=== PATIENT | male | born 1975 | race Caucasian/White ===

== ENCOUNTER 2024-04-04 16:34 | Inpatient (IN) | payer SELFPAY ==
[2024-04-04] VITALS (14 sets, daily range): BP systolic 136–226; BP diastolic 84–132; PULSE 95–127; RESP 16–48; TEMP 36.8–37.2; O2SAT 80–100; BMI 22.1
--- NOTE | 2024-04-04 16:51 | DI.RAD.S_ITS ---
PROCEDURE: XR CHEST 1V INDICATIONS: dyspnea TECHNIQUE: One view of the chest was acquired. COMPARISON: None. FINDINGS: Surgical changes and devices: None. Lungs and pleura: Lungs are clear. No pleural effusions or pneumothorax. Mediastinum: Mediastinal contours appear normal. Heart size is normal. Bones and chest wall: No suspicious bony lesions. Multiple old healed right rib fractures. Overlying soft tissues appear unremarkable. IMPRESSION: No acute cardiopulmonary abnormality is seen. Dictated by: Iker Pimentel M.D. on 04/04/2024 at 17:33 Approved by: Iker Pimentel M.D. on 04/04/2024 at 17:34
--- NOTE | 2024-04-04 16:52 | ED.ASTHMA ---
HPI - Asthma <Leopoldo DO Narda - Last Filed: 04/04/24 18:19> General Chief Complaint: Shortness of Breath/Dyspnea Stated Complaint: Asthma, sob Time Seen by Provider: 04/04/24 16:48 History of Present Illness HPI Narrative: Patient is a 49-year-old male with a history of asthma presents to the emergency department for shortness of breath wheezing. States that he started having some shortness of breath wheezing today tried using his nebulizer but did not help therefore came into the ED for further evaluation treatment. Patient was brought in by medics was 80 % on room air, placed on non-rebreather and is now 100%. At time of initial evaluation patient patient with decreased breath sounds bilaterally, tachypneic, however he is protecting his airway. He is speaking in short sentences. He is tolerating his secretions there is no stridor no voice change no trismus. He denies any other symptoms at this time. He states that he has never been intubated for asthma in the past. Related Data Home Medications Medication Instructions Recorded Confirmed Primatene Mist 2 puff inhalation Q4HR PRN Asthma 04/04/24 04/04/24 Allergies Allergy/AdvReac Type Severity Reaction Status Date / Time No Known Drug Allergies Allergy Verified 04/04/24 16:48 Review of Systems <Leopoldo DO Melva Laboy Last Filed: 04/04/24 18:19> Review of Systems Narrative: General: Denies fever, chills, weight loss HEENT: Denies headache, eye drainage, eye irritation, head trauma, sore throat, voice change Cardiovascular: Denies any chest pain, palpitations, shortness of breath, tachycardia Respiratory: Positive for shortness of breath, cough, wheeze GI/: Denies any abdominal pain, nausea, vomiting, diarrhea, bright red blood per rectum, melanotic stools, urinary frequency, urinary retention, dysuria, hematuria MSK: Denies any joint pain, muscle pains, swelling Skin: Denies any rashes, lesions, discoloration Neuro: Denies any headache, lightheadedness, dizziness, fainting, weakness Psych: Denies SI/HI Patient History <DO Melva Hoyos Last Filed: 04/04/24 18:19> Social History household members: family Smoking Status: Current every day smoker alcohol intake: current Exam <DO Melva Hoyos Last Filed: 04/04/24 18:19> Narrative Exam Narrative: General: Cooperative, comfortable, well-developed, not in acute distress HEENT: Normocephalic, atraumatic, PERRLA, normal sclera, eyelids normal, Neck: Active full range of motion, atraumatic Chest: Normal to inspection, negative crepitus, no overlying erythema ecchymosis Respiratory: Patient is speaking in short sentences but protecting airway, no stridor no voice change, no trismus, there is diffuse wheezing bilaterally, as well as diminished breath sounds bilaterally Cardiology: Regular rate rhythm negative gallop, murmur, rubs GI/: Normal to inspection, soft, nonrigid, no tenderness to palpation, exam deferred MSK: Full range of active range of motion of all 4 extremities, atraumatic Skin: No rashes lesions noted Neuro: Alert awake oriented x3, moves all 4 extremities spontaneously, cranial nerves intact, able to answer all questions appropriately follows commands appropriately Psych: Cooperative, negative suicidal or homicidal ideations Initial Vital Signs Initial Vital Signs: Vital Signs Temperature 98.9 F 04/04/24 16:40 Pulse Rate 110 H 04/04/24 16:40 Respiratory Rate 48 H 04/04/24 16:40 Blood Pressure 226/132 H 04/04/24 16:40 Pulse Oximetry 80 L 04/04/24 16:40 Oxygen Delivery Method Room Air 04/04/24 16:40 <Maid Hauser, DO - Last Filed: 04/05/24 00:22> Initial Vital Signs Initial Vital Signs: Vital Signs Temperature 98.9 F 04/04/24 16:40 Pulse Rate 110 H 04/04/24 16:40 Respiratory Rate 48 H 04/04/24 16:40 Blood Pressure 226/132 H 04/04/24 16:40 Pulse Oximetry 80 L 04/04/24 16:40 Oxygen Delivery Method Room Air 04/04/24 16:40 Course <Leopoldo Narda, DO - Last Filed: 04/04/24 18:19> Orders Ordered: ED Orders 04/04/24 16:45 CBC Auto Diff [Complete Blood Count AUTO DIFF] Stat CMP [Comprehensive Metabolic Panel] Stat 04/04/24 16:51 XR chest 1V Stat 04/04/24 17:40 Covid-19 + FLU A/B + RSV - PCR Stat Acetaminophen (Acetaminophen 325 Mg Tablet) 650 mg PO Q6H PRN PRN Reason: Fever/Mild Pain (1-3) Last Admin: 04/04/24 21:56 Dose: 650 mg Documented By: OBI Albuterol (Albuterol 2.5 Mg/3 Ml Neb (Adult)) 2.5 mg INH [id number] PRN PRN Reason: Shortness Of Breath Last Admin: 04/04/24 22:50 Dose: 2.5 mg Documented By: MR Albuterol/Ipratropium (Albuterol/Ipratropium 3 Ml Ampul) 3 ml INH [id number] [facility] Amlodipine Besylate (Amlodipine 5 Mg Tablet) 5 mg PO DAILY [facility] Calcium Carbonate (Calcium Carbonate 500 Mg Tab) 1,000 mg PO Q4HR PRN PRN Reason: Dyspepsia Doxycycline Hyclate (Doxycycline Hyclate 100 Mg Tablet) 100 mg PO BID DAVID Last Admin: 04/04/24 21:57 Dose: 100 mg Documented By: OBI Enoxaparin Sodium (Enoxaparin 40 Mg/0.4 Ml Syringe) 40 mg SUBCUT DAILY [facility] Hydralazine HCl (Hydralazine 20 Mg/Ml Vial) 10 mg IV Q6HR PRN PRN Reason: Hypertension Hydromorphone HCl (Hydromorphone 0.5 Mg Inj) 0.5 mg IV Q2H PRN PRN Reason: Pain, Severe (7-10) Last Admin: 04/04/24 22:55 Dose: 0.5 mg Documented By: VALERIA Ibuprofen (Ibuprofen 600 Mg Tablet) 600 mg PO Q6H PRN PRN Reason: Fever/Mild Pain (1-3) Lorazepam (Lorazepam 0.5 Mg Tablet) 0.5 mg PO Q4HR PRN PRN Reason: Anxiety Last Admin: 04/04/24 22:54 Dose: 0.5 mg Documented By: VALERIA Magnesium Hydroxide (Magnesium Hydroxide 30 Ml Udc) 30 ml PO DAILY PRN PRN Reason: Constipation Methylprednisolone (Methylprednisolone 125 Mg/2 Ml Vial) 80 mg IV Q8H [facility] Montelukast Sodium (Montelukast 10 Mg Tablet) 10 mg PO DAILY [facility] Naloxone HCl (Naloxone 0.4 Mg/Ml Vial) 0.2 mg IV Q2MIN PRN PRN Reason: Opiate Reversal Ondansetron HCl (Ondansetron 4 Mg/2 Ml Inj) 4 mg IV Q8HR PRN PRN Reason: Nausea And Vomiting Pantoprazole Sodium (Pantoprazole Dr 20 Mg Tablet) 20 mg PO 0600 DAVID Sennosides (Sennosides 8.6 Mg Tablet) 17.2 mg PO BEDTIME [facility] Last Admin: 04/04/24 21:57 Dose: Not Given Documented By: OBI Sodium Chloride (Sodium Chloride 0.9% Flush) 10 ml IV PRN PRN PRN Reason: Flush Sodium Chloride (Sodium Chloride 0.9% Flush) 10 ml IV BID DAVID Zolpidem Tartrate (Zolpidem 5 Mg Tablet) 5 mg PO BEDTIME PRN PRN Reason: Sleep Discontinued Medications Albuterol (Albuterol 2.5 Mg/3 Ml Neb (Adult)) 20 mg INH NOW ONE Stop: 04/04/24 16:49 Last Admin: 04/04/24 17:01 Dose: 20 mg Documented By: LUCAS Albuterol/Ipratropium (Albuterol/Ipratropium 3 Ml Ampul) 3 ml INH Q1H PRN PRN Reason: Shortness Of Breath Magnesium Sulfate (Magnesium Sulfate) 2 gm in 50 mls @ 150 mls/hr IV NOW ONE Stop: 04/04/24 17:07 Last Infusion: 04/04/24 17:53 Dose: Infused Documented By: VANESSA Co-signed By: KHOI Admin: 04/04/24 16:53 Dose: 150 mls/hr Documented By: VANESSA Co-signed By: LENA Methylprednisolone (Methylprednisolone 125 Mg/2 Ml Vial) 125 mg IV NOW ONE Stop: 04/04/24 16:49 Last Admin: 04/04/24 16:53 Dose: 125 mg Documented By: VANESSA Methylprednisolone (Methylprednisolone 125 Mg/2 Ml Vial) 80 mg IV Q8H [facility] Last Admin: 04/04/24 20:43 Dose: Not Given Documented By: TALISHA Nicotine (Nicotine 14 Patch) 14 mg TOP NOW ONE Stop: 04/04/24 19:48 Last Admin: 04/04/24 21:40 Dose: 14 mg Documented By: TALISHA Vital Signs Vital signs: Vital Signs - 8 hr 04/04/24 16:40 04/04/24 16:48 04/04/24 17:00 Temperature 98.9 F Pulse Rate 110 H 95 H 103 H Respiratory Rate 48 H Blood Pressure 226/132 H Pulse Oximetry 80 L 100 97 Oxygen Delivery Method Room Air Oxygen Flow Rate 04/04/24 17:01 04/04/24 17:01 04/04/24 17:07 Temperature Pulse Rate 105 H 103 H Respiratory Rate 20 Blood Pressure 179/97 H Pulse Oximetry 96 100 Oxygen Delivery Method Room Air Oxygen Flow Rate 04/04/24 17:30 04/04/24 17:30 04/04/24 18:00 Temperature Pulse Rate 114 H Respiratory Rate Blood Pressure 154/100 H 166/84 H Pulse Oximetry 96 Oxygen Delivery Method Aerosol Mask Oxygen Flow Rate 10 04/04/24 18:00 04/04/24 18:30 04/04/24 18:30 Temperature Pulse Rate 127 H 124 H Respiratory Rate Blood Pressure 136/90 Pulse Oximetry 97 89 L Oxygen Delivery Method Oxygen Flow Rate 04/04/24 19:00 04/04/24 19:00 04/04/24 19:30 Temperature Pulse Rate 118 H 112 H Respiratory Rate Blood Pressure 139/88 Pulse Oximetry 88 L 90 L Oxygen Delivery Method Nasal Cannula Nasal Cannula Oxygen Flow Rate 6 6 04/04/24 19:30 Temperature Pulse Rate Respiratory Rate Blood Pressure 139/88 Pulse Oximetry Oxygen Delivery Method Oxygen Flow Rate <Madi Hauser, DO - Last Filed: 04/05/24 00:22> Orders Ordered: ED Orders 04/04/24 16:45 CBC Auto Diff [Complete Blood Count AUTO DIFF] Stat CMP [Comprehensive Metabolic Panel] Stat 04/04/24 16:51 XR chest 1V Stat 04/04/24 17:40 Covid-19 + FLU A/B + RSV - PCR Stat Acetaminophen (Acetaminophen 325 Mg Tablet) 650 mg PO Q6H PRN PRN Reason: Fever/Mild Pain (1-3) Last Admin: 04/04/24 21:56 Dose: 650 mg Documented By: MP Albuterol (Albuterol 2.5 Mg/3 Ml Neb (Adult)) 2.5 mg INH [id number] PRN PRN Reason: Shortness Of Breath Last Admin: 04/04/24 22:50 Dose: 2.5 mg Documented By: MR Albuterol/Ipratropium (Albuterol/Ipratropium 3 Ml Ampul) 3 ml INH [id number] [facility] Amlodipine Besylate (Amlodipine 5 Mg Tablet) 5 mg PO DAILY [facility] Calcium Carbonate (Calcium Carbonate 500 Mg Tab) 1,000 mg PO Q4HR PRN PRN Reason: Dyspepsia Doxycycline Hyclate (Doxycycline Hyclate 100 Mg Tablet) 100 mg PO BID [facility] Last Admin: 04/04/24 21:57 Dose: 100 mg Documented By: OBI Enoxaparin Sodium (Enoxaparin 40 Mg/0.4 Ml Syringe) 40 mg SUBCUT DAILY [facility] Hydralazine HCl (Hydralazine 20 Mg/Ml Vial) 10 mg IV Q6HR PRN PRN Reason: Hypertension Hydromorphone HCl (Hydromorphone 0.5 Mg Inj) 0.5 mg IV Q2H PRN PRN Reason: Pain, Severe (7-10) Last Admin: 04/04/24 22:55 Dose: 0.5 mg Documented By: VALERIA Ibuprofen (Ibuprofen 600 Mg Tablet) 600 mg PO Q6H PRN PRN Reason: Fever/Mild Pain (1-3) Lorazepam (Lorazepam 0.5 Mg Tablet) 0.5 mg PO Q4HR PRN PRN Reason: Anxiety Last Admin: 04/04/24 22:54 Dose: 0.5 mg Documented By: VALERIA Magnesium Hydroxide (Magnesium Hydroxide 30 Ml Udc) 30 ml PO DAILY PRN PRN Reason: Constipation Methylprednisolone (Methylprednisolone 125 Mg/2 Ml Vial) 80 mg IV Q8H [facility] Montelukast Sodium (Montelukast 10 Mg Tablet) 10 mg PO DAILY [facility] Naloxone HCl (Naloxone 0.4 Mg/Ml Vial) 0.2 mg IV Q2MIN PRN PRN Reason: Opiate Reversal Ondansetron HCl (Ondansetron 4 Mg/2 Ml Inj) 4 mg IV Q8HR PRN PRN Reason: Nausea And Vomiting Pantoprazole Sodium (Pantoprazole Dr 20 Mg Tablet) 20 mg PO 0600 [facility] Sennosides (Sennosides 8.6 Mg Tablet) 17.2 mg PO BEDTIME [facility] Last Admin: 04/04/24 21:57 Dose: Not Given Documented By: OBI Sodium Chloride (Sodium Chloride 0.9% Flush) 10 ml IV PRN PRN PRN Reason: Flush Sodium Chloride (Sodium Chloride 0.9% Flush) 10 ml IV BID [facility] Zolpidem Tartrate (Zolpidem 5 Mg Tablet) 5 mg PO BEDTIME PRN PRN Reason: Sleep Discontinued Medications Albuterol (Albuterol 2.5 Mg/3 Ml Neb (Adult)) 20 mg INH NOW ONE Stop: 04/04/24 16:49 Last Admin: 04/04/24 17:01 Dose: 20 mg Documented By: LUCAS Albuterol/Ipratropium (Albuterol/Ipratropium 3 Ml Ampul) 3 ml INH Q1H PRN PRN Reason: Shortness Of Breath Magnesium Sulfate (Magnesium Sulfate) 2 gm in 50 mls @ 150 mls/hr IV NOW ONE Stop: 04/04/24 17:07 Last Infusion: 04/04/24 17:53 Dose: Infused Documented By: VANESSA Co-signed By: KHOI Admin: 04/04/24 16:53 Dose: 150 mls/hr Documented By: VANESSA Co-signed By: LENA Methylprednisolone (Methylprednisolone 125 Mg/2 Ml Vial) 125 mg IV NOW ONE Stop: 04/04/24 16:49 Last Admin: 04/04/24 16:53 Dose: 125 mg Documented By: VANESSA Methylprednisolone (Methylprednisolone 125 Mg/2 Ml Vial) 80 mg IV Q8H [facility] Last Admin: 04/04/24 20:43 Dose: Not Given Documented By: TALISHA Nicotine (Nicotine 14 Patch) 14 mg TOP NOW ONE Stop: 04/04/24 19:48 Last Admin: 04/04/24 21:40 Dose: 14 mg Documented By: TALISHA Vital Signs Vital signs: Vital Signs - 8 hr 04/04/24 16:40 04/04/24 16:48 04/04/24 17:00 Temperature 98.9 F Pulse Rate 110 H 95 H 103 H Respiratory Rate 48 H Blood Pressure 226/132 H Pulse Oximetry 80 L 100 97 Oxygen Delivery Method Room Air Oxygen Flow Rate 04/04/24 17:01 04/04/24 17:01 04/04/24 17:07 Temperature Pulse Rate 105 H 103 H Respiratory Rate 20 Blood Pressure 179/97 H Pulse Oximetry 96 100 Oxygen Delivery Method Room Air Oxygen Flow Rate 04/04/24 17:30 04/04/24 17:30 04/04/24 18:00 Temperature Pulse Rate 114 H Respiratory Rate Blood Pressure 154/100 H 166/84 H Pulse Oximetry 96 Oxygen Delivery Method Aerosol Mask Oxygen Flow Rate 10 04/04/24 18:00 04/04/24 18:30 04/04/24 18:30 Temperature Pulse Rate 127 H 124 H Respiratory Rate Blood Pressure 136/90 Pulse Oximetry 97 89 L Oxygen Delivery Method Oxygen Flow Rate 04/04/24 19:00 04/04/24 19:00 04/04/24 19:30 Temperature Pulse Rate 118 H 112 H Respiratory Rate Blood Pressure 139/88 Pulse Oximetry 88 L 90 L Oxygen Delivery Method Nasal Cannula Nasal Cannula Oxygen Flow Rate 6 6 04/04/24 19:30 Temperature Pulse Rate Respiratory Rate Blood Pressure 139/88 Pulse Oximetry Oxygen Delivery Method Oxygen Flow Rate MDM - Asthma <Leopoldo Laboy, - Last Filed: 04/04/24 18:19> Differential Diagnosis Differential diagnosis: Likely Acute exacerbation, Pneumonia and other (Electrolyte abnormality, COVID, flu) Lab Data 04/04/24 16:45 04/04/24 16:45 Labs: Lab Results 04/04/24 04/04/24 Range/Units 16:45 17:40 WBC 13.8 H (4.5-11.0) X10^3/uL RBC 5.00 (4.5-5.9) X10^6/uL Hgb 16.7 (13.5-17.5) g/dL Hct 49.3 (41-53) % MCV 98.6 (80-100) fL MCH 33.5 (26-34) PG MCHC 33.9 (30-36) % RDW 12.7 (11.6-14.8) % Plt Count 190 (150-400) X10^3/uL Neut % (Auto) 60.1 (50-75) % Lymph % (Auto) 26.3 (25-40) % Meigs % (Auto) 9.4 (3-14) % Eos % (Auto) 3.5 (2-4) % Baso % (Auto) 0.7 (0-2) % Neut # (Auto) 8300 H (8440-6610) /uL Lymph # (Auto) 3600 (1029-8532) /uL Meigs # (Auto) 1300 H (0-900) /uL Eos # (Auto) 500 H (0-450) /uL Baso # (Auto) 100 (0-100) /uL Sodium 136 L (137-145) mmol/L Potassium 4.1 (3.4-5.1) mmol/L Chloride 102 (98-107) mmol/L Carbon Dioxide 25 (22-32) mmol/L BUN 8 L (9-20) mg/dL Creatinine 0.92 (0.66-1.25) mg/dL Estimated GFR > 60 (>60) mL/min BUN/Creatinine Ratio 8.7 (6-22) Glucose 118 H (70-100) mg/dL Calcium 9.3 (8.4-10.2) mg/dL Total Bilirubin 0.6 (0.2-1.3) mg/dL AST 23 (17-59) IU/L ALT 19 (<50) IU/L Alkaline Phosphatase 103 (38-126) U/L Total Protein 7.6 (6.3-8.2) g/dL Albumin 4.8 (3.5-5.0) g/dL Globulin 2.8 (1.7-4.1) g/dL Albumin/Globulin Ratio 1.7 (1.0-2.8) SARS-CoV-2 (PCR) Negative (Negative) Influenza A (RT-PCR) Flu a negative (NEGATIVE) Influenza B (RT-PCR) Flu b negative (NEGATIVE) RSV (PCR) Negative (Negative) Imaging Data Chest x-ray: Radiologist's Impression: [address] [address] XRay Report Signed Patient: Willy Rodriguez MR#: [id number] : 1975 Acct:[id number] Age/Sex: 49 / M Date of Service: 04/04/24 Loc: ED Accession Number: [id number] Procedure: XR chest 1V Ordering Provider: Leopoldo Laboy D.O. PROCEDURE: XR CHEST 1V INDICATIONS: dyspnea TECHNIQUE: One view of the chest was acquired. COMPARISON: None. FINDINGS: Surgical changes and devices: None. Lungs and pleura: Lungs are clear. No pleural effusions or pneumothorax. Mediastinum: Mediastinal contours appear normal. Heart size is normal. Bones and chest wall: No suspicious bony lesions. Multiple old healed right rib fractures. Overlying soft tissues appear unremarkable. IMPRESSION: No acute cardiopulmonary abnormality is seen. MDM Narrative Medical decision making narrative: Patient is a 49-year-old male with a history of asthma, brought in by medics for shortness of breath, patient was hypoxic on room air in the 80s. Placed on a non-rebreather now 100%. At initial evaluation patient with diminished breath sounds bilaterally with expiratory wheezes bilaterally, he is tachypneic but is protecting his airway. Speaking in short sentences. He was not with any voice change no stridor no trismus. He has never been intubated for this in the past. States that he was trying to use his nebulizers at home with very little relief. 1801: Patient was re-evaluated, he is now speaking in full sentences he has trace to no expiratory wheezes on repeat auscultation of bilateral lungs, will monitor him off oxygen, if patient still not requiring any supplemental oxygen will be safe for discharge home with steroids, rescue inhaler and nebulizer solution prescription. <Madi Hauser, DO - Last Filed: 04/05/24 00:22> Lab Data Labs: Lab Results 04/04/24 04/04/24 Range/Units 16:45 17:40 WBC 13.8 H (4.5-11.0) X10^3/uL RBC 5.00 (4.5-5.9) X10^6/uL Hgb 16.7 (13.5-17.5) g/dL Hct 49.3 (41-53) % MCV 98.6 (80-100) fL MCH 33.5 (26-34) PG MCHC 33.9 (30-36) % RDW 12.7 (11.6-14.8) % Plt Count 190 (150-400) X10^3/uL Neut % (Auto) 60.1 (50-75) % Lymph % (Auto) 26.3 (25-40) % Meigs % (Auto) 9.4 (3-14) % Eos % (Auto) 3.5 (2-4) % Baso % (Auto) 0.7 (0-2) % Neut # (Auto) 8300 H (9169-1226) /uL Lymph # (Auto) 3600 (6816-3535) /uL Meigs # (Auto) 1300 H (0-900) /uL Eos # (Auto) 500 H (0-450) /uL Baso # (Auto) 100 (0-100) /uL Sodium 136 L (137-145) mmol/L Potassium 4.1 (3.4-5.1) mmol/L Chloride 102 (98-107) mmol/L Carbon Dioxide 25 (22-32) mmol/L BUN 8 L (9-20) mg/dL Creatinine 0.92 (0.66-1.25) mg/dL Estimated GFR > 60 (>60) mL/min BUN/Creatinine Ratio 8.7 (6-22) Glucose 118 H (70-100) mg/dL Calcium 9.3 (8.4-10.2) mg/dL Total Bilirubin 0.6 (0.2-1.3) mg/dL AST 23 (17-59) IU/L ALT 19 (<50) IU/L Alkaline Phosphatase 103 (38-126) U/L Total Protein 7.6 (6.3-8.2) g/dL Albumin 4.8 (3.5-5.0) g/dL Globulin 2.8 (1.7-4.1) g/dL Albumin/Globulin Ratio 1.7 (1.0-2.8) SARS-CoV-2 (PCR) Negative (Negative) Influenza A (RT-PCR) Flu a negative (NEGATIVE) Influenza B (RT-PCR) Flu b negative (NEGATIVE) RSV (PCR) Negative (Negative) MDM Narrative Medical decision making narrative: Patient is a 49-year-old male with a history of asthma, brought in by medics for shortness of breath, patient was hypoxic on room air in the 80s. Placed on a non-rebreather now 100%. At initial evaluation patient with diminished breath sounds bilaterally with expiratory wheezes bilaterally, he is tachypneic but is protecting his airway. Speaking in short sentences. He was not with any voice change no stridor no trismus. He has never been intubated for this in the past. States that he was trying to use his nebulizers at home with very little relief. 1801: Patient was re-evaluated, he is now speaking in full sentences he has trace to no expiratory wheezes on repeat auscultation of bilateral lungs, will monitor him off oxygen, if patient still not requiring any supplemental oxygen will be safe for discharge home with steroids, rescue inhaler and nebulizer solution prescription. Dr hauser: Received turned over. Review patient's history and physical. Patient states he was feeling much better in his lung sounds are clear however he continues to be hypoxic. Is requiring 6 L of oxygen by nasal cannula in order to maintain saturations greater than 90%. He was no chest pain. I have low suspicion for pulmonary embolism just given his presentation today. No signs of pneumonia on his chest x-ray. Given the fact that he is requiring oxygen he does require admission to the hospital. Discussed the case with Dr. renee hospitalist on-call who will admit. Discussed the need for admission with the patient who expressed understanding and agreement as well. Discharge Plan Departure Patient Disposition: Admitted as Observation Clinical Impression: Asthma with exacerbation, Hypoxia Admit Date/Time: 04/04/24 19:54 Admit Provider: Madi Renee
[2024-04-04] MEDS: MAGNESIUM SULFATE 2 GM/50 ML PIGGYBACK IV (16:53)
[2024-04-04] MEDS: methylPREDNISolone 125 MG/2 ML VIAL IV (16:53)
[2024-04-04 16:58] LABS: Add Manual Diff / Slide Review NO; Basophils Absolute Auto 100 /uL (0-100); Basophils Percent Auto 0.7 % (0-2); Eosinophils Absolute Auto 500 /uL (0-450); Eosinophils Percent Auto 3.5 % (2-4); Hematocrit 49.3 % (41-53); Hemoglobin 16.7 g/dL (13.5-17.5); Lymphocytes Absolute Auto 3600 /uL (1100-4500); Lymphocytes Percent Auto 26.3 % (25-40); Mean Corpuscular HGB Conc 33.9 % (30-36); Mean Corpuscular Hemoglobin 33.5 PG (26-34); Mean Corpuscular Volume 98.6 fL (80-100); Monocytes Absolute Auto 1300 /uL (0-900); Monocytes Percent Auto 9.4 % (3-14); Neutrophils Absolute Auto 8300 /uL (1500-7000); Neutrophils Percent Auto 60.1 % (50-75); Platelet Count 190 X10^3/uL (150-400); Red Cell Distribution Width 12.7 % (11.6-14.8); White Blood Cell Count 13.8 X10^3/uL (4.5-11.0)
[2024-04-04] MEDS: ALBUTEROL 2.5 MG/3 ML NEB (ADULT) 20 MG INH (17:01)
[2024-04-04 17:08] LABS: Alanine Aminotransferase 19 IU/L (<50); Albumin 4.8 g/dL (3.5-5.0); Albumin Globulin Ratio 1.7 (1.0-2.8); Alkaline Phosphatase 103 U/L (38-126); Aspartate Aminotransferase 23 IU/L (17-59); BUN Creatinine Ratio 8.7 (6-22); Bilirubin Total 0.6 mg/dL (0.2-1.3); Blood Urea Nitrogen 8 mg/dL (9-20); Calcium 9.3 mg/dL (8.4-10.2); Carbon Dioxide 25 mmol/L (22-32); Chloride 102 mmol/L (98-107); Estimated Glomerular Filt Rate > 60 mL/min (>60); Globulin 2.8 g/dL (1.7-4.1); Glucose 118 mg/dL (70-100); HEMOLYSIS < 15 (0-50); Potassium 4.1 mmol/L (3.4-5.1); Sodium 136 mmol/L (137-145); Total Protein 7.6 g/dL (6.3-8.2)
--- NOTE | 2024-04-04 17:11 | RT ---
Patient given Albuterol 20mg continuous Neb for Asthma exacerbation. Patient states he ran out of home med (primatine mist mdi). Immediate improvement noted with tx. BS pre tx diminished anterior, with I/E Wheezes throughout posterior lung torres.
--- NOTE | 2024-04-04 17:30 | RT ---
RT called to bedside. Patient with RA sats of 88%. Tx switched from 10L air source to 10L oxygen. Current sat 97%
--- NOTE | 2024-04-04 18:03 | PC.NURSE ---
Continuous neb finished, wheezes no longer auscultated. After continuous neb, pt 88% on RA, now requiring 2L NC
--- NOTE | 2024-04-04 18:23 | PC.NURSE ---
Oxygen demands increasing. RT called to bedside pt 88% on 6L NC. Dr. Laboy aware and okaying O2 sat >88%. Pt appears well and free of respiratory distress.
[2024-04-04 18:29] LABS: Influenza A - CEPHEID Flu A NEGATIVE (NEGATIVE); Influenza B - CEPHEID Flu B NEGATIVE (NEGATIVE); Respiratory Syncytial Virus Negative (Negative)
[2024-04-04 18:31] LABS: COVID-19 CEPHEID 4-PLEX PCR Negative (Negative)
--- NOTE | 2024-04-04 20:00 | PC.NURSE ---
Patient oxygen saturation fluctuating between 89-90% on 6L oxygen nasal cannula. Patient states he does not have SOB and denies other symptoms at this time. Dr. Hauser is aware as well as RT Vela. No new orders. Patient has call light in reach and is AAOx4 will call if any changes.
[2024-04-04] MEDS: NICOTINE 14 PATCH 14 MG TOP (21:40)
[2024-04-04] MEDS: ACETAMINOPHEN 325 MG TABLET 650 MG PO (21:56)
[2024-04-04] MEDS: DOXYCYCLINE HYCLATE 100 MG TABLET PO (21:57)
[2024-04-04] MEDS: ALBUTEROL 2.5 MG/3 ML NEB (ADULT) INH (22:50)
[2024-04-04] MEDS: LORazepam 0.5 MG TABLET PO (22:54)
[2024-04-04] MEDS: HYDROMORPHONE 0.5 MG INJ IV (22:55)
--- NOTE | 2024-04-04 23:25 | P.HP_ITS ---
History of Present Illness History of Present Illness Date Patient Seen: 04/05/24 Time Patient Seen: 23:25 Chief complaint: Asthma, sob Narrative: The pt started having SOB and chest tightness over the past 4-5 days. He states that he ran out of his albuterol and Spiriva inhaler about 2 weeks ago. The last time he was in the hospital was for his asthma about 2 years ago. He continues to smoke cigarettes a pack daily, no marijuana use, no alcohol use, he works in a [employer] making [employer] and believes there are irritants to his breathing there. He has not been exposed to known illness, no recent immunizations, no fevers, chills, or productive sputum. FOR[facility]LY [facility] Social History household members: family Smoking Status: Current every day smoker alcohol intake: current Meds Home Medications and Allergies Home Medications Medication Instructions Recorded Confirmed Type Primatene Mist 2 puff inhalation Q4HR PRN Asthma 04/04/24 04/04/24 History Allergies Allergy/AdvReac Type Severity Reaction Status Date / Time No Known Drug Allergies Allergy Verified 04/04/24 16:48 Exam Vital Signs (past 8 hours): - 04/04/24 16:40 04/04/24 16:48 04/04/24 17:00 Temperature 98.9 F Pulse Rate 110 H 95 H 103 H Respiratory Rate 48 H Blood Pressure 226/132 H Pulse Oximetry 80 L 100 97 Oxygen Delivery Method Room Air Oxygen Flow Rate 04/04/24 17:01 04/04/24 17:01 04/04/24 17:07 Temperature Pulse Rate 105 H 103 H Respiratory Rate 20 Blood Pressure 179/97 H Pulse Oximetry 96 100 Oxygen Delivery Method Room Air Oxygen Flow Rate 04/04/24 17:30 04/04/24 17:30 04/04/24 18:00 Temperature Pulse Rate 114 H Respiratory Rate Blood Pressure 154/100 H 166/84 H Pulse Oximetry 96 Oxygen Delivery Method Aerosol Mask Oxygen Flow Rate 10 04/04/24 18:00 04/04/24 18:30 04/04/24 18:30 Temperature Pulse Rate 127 H 124 H Respiratory Rate Blood Pressure 136/90 Pulse Oximetry 97 89 L Oxygen Delivery Method Oxygen Flow Rate 04/04/24 19:00 04/04/24 19:00 04/04/24 19:30 Temperature Pulse Rate 118 H 112 H Respiratory Rate Blood Pressure 139/88 Pulse Oximetry 88 L 90 L Oxygen Delivery Method Nasal Cannula Nasal Cannula Oxygen Flow Rate 6 6 04/04/24 19:30 04/04/24 20:00 04/04/24 20:00 Temperature Pulse Rate 111 H Respiratory Rate Blood Pressure 139/88 145/93 H Pulse Oximetry 90 L Oxygen Delivery Method Nasal Cannula Oxygen Flow Rate 6 04/04/24 20:30 04/04/24 20:30 04/04/24 21:00 Temperature Pulse Rate 106 H Respiratory Rate 20 Blood Pressure 147/86 H 147/86 H Pulse Oximetry 89 L Oxygen Delivery Method Nasal Cannula Oxygen Flow Rate 6 04/04/24 21:00 04/04/24 21:50 Temperature 98.3 F Pulse Rate 106 H 106 H Respiratory Rate 19 16 Blood Pressure 140/92 H Pulse Oximetry 90 L 91 Oxygen Delivery Method Nasal Cannula Oxygen Flow Rate 6 6 Oxygen Delivery Method Nasal Cannula Oxygen Flow Rate 6 Const General: cooperative, healthy appearing and comfortable Resp Auscultation: diminished lung sounds and wheezes Cardio Rate: regular rate Rhythm: regular rhythm GI Auscultation: normal bowel sounds Extrem General: normal to inspection Objective Labs 04/04/24 16:45 04/04/24 16:45 Labs: Laboratory Results - last 24 hr 04/04/24 04/04/24 16:45 17:40 WBC 13.8 H RBC 5.00 Hgb 16.7 Hct 49.3 MCV 98.6 MCH 33.5 MCHC 33.9 RDW 12.7 Plt Count 190 Neut % (Auto) 60.1 Lymph % (Auto) 26.3 [place] % (Auto) 9.4 Eos % (Auto) 3.5 Baso % (Auto) 0.7 Neut # (Auto) 8300 H Lymph # (Auto) 3600 [place] # (Auto) 1300 H Eos # (Auto) 500 H Baso # (Auto) 100 Sodium 136 L Potassium 4.1 Chloride 102 Carbon Dioxide 25 BUN 8 L Creatinine 0.92 Estimated GFR > 60 BUN/Creatinine Ratio 8.7 Glucose 118 H Calcium 9.3 Total Bilirubin 0.6 AST 23 ALT 19 Alkaline Phosphatase 103 Total Protein 7.6 Albumin 4.8 Globulin 2.8 Albumin/Globulin Ratio 1.7 SARS-CoV-2 (PCR) Negative Influenza A (RT-PCR) Flu a negative Influenza B (RT-PCR) Flu b negative RSV (PCR) Negative Assessment & Plan Assessment & Plan narrative: I have discussed the pt's symptoms, labs and imaging with the ER provider and agree with the decision for admission, shared decision making was had with the pt, ER provider and myself. I have personally reviewed the labs showing the WBC of 13 and electrolytes being normal. 1. asthma exacerbation on intermittent chronic asthma- will start the pt on Solumedrol 80mg Q8, Duonebs QID, albuterol prn, closely monitor, CXR reviewed without acute infiltrates. 2. Acute respiratory failure with hypoxia- currently on 5 lpm NC with SaO2 96% , he is not normally on oxygen, check d-dimer, although clinically there is a low suspecion for PE, 3. HTN- the pt states that he ran out of all of his medications weeks ago and does not know what BP meds he is on at home, will start on Norvasc. Time-Based Coding :: [TOTAL MINUTES] spent with patient and on the chart (including review of chart, obtaining history, exam, reviewing outside data, placing orders, documenting exam and treatment plan, and counseling patient) on [DATE]. Quality VTE Deep Vein Thrombosis/Pulmonary Embolism Present on Admission: No
[2024-04-05] VITALS (8 sets, daily range): BP systolic 136–148; BP diastolic 58–98; PULSE 98–105; RESP 17–20; TEMP 36.1–36.4; O2SAT 91–94
--- NOTE | 2024-04-05 00:10 | PC.NURSE ---
2150 Pt. admitted to room 223 from ER,. Diagnosed with Asthma exacerbation,reported breathing a lot better after receiving some RT treatment in ER. Oriented to his room & denies any fall recently. Will continue plan of care & monitor.
[2024-04-05] MEDS: methylPREDNISolone 125 MG/2 ML VIAL 80 MG IV ×3 (01:02→16:58)
[2024-04-05] MEDS: SODIUM CHLORIDE 0.9% FLUSH 10 ML IV ×4 (01:03→21:17)
[2024-04-05] MEDS: ALBUTEROL 2.5 MG/3 ML NEB (ADULT) INH (03:37)
[2024-04-05] MEDS: HYDROMORPHONE 0.5 MG INJ IV ×3 (03:55→14:31)
[2024-04-05] MEDS: LORazepam 0.5 MG TABLET PO ×4 (04:01→21:16)
[2024-04-05 04:48] LABS: UR Morphine/Opiate cutoff 300 Negative (Negative); Ur Creatinine Normal (Normal); Ur Specific Gravity Normal (Normal); Urine Amphetamines Negative (Negative); Urine Barbiturates Negative (Negative); Urine Benzodiazepines Positive (Negative); Urine Cocaine Negative (Negative); Urine MDMA Negative (Negative); Urine Methadone Negative (Negative); Urine Methamphetamines Negative (Negative); Urine Oxycodone Negative (Negative); Urine Phencyclidine Negative (Negative); Urine Tetrahydrocannabinol Negative (Negative); Urine Tricyclic Antidepressant Negative (Negative); Urine pH Normal (Normal)
[2024-04-05] MEDS: PANTOPRAZOLE DR 20 MG TABLET PO (05:32)
[2024-04-05 05:38] LABS: Add Manual Diff / Slide Review NO; Basophils Absolute Auto 0 /uL (0-100); Basophils Percent Auto 0.2 % (0-2); Eosinophils Absolute Auto 0 /uL (0-450); Eosinophils Percent Auto 0.1 % (2-4); Hematocrit 44.9 % (41-53); Hemoglobin 15.5 g/dL (13.5-17.5); Lymphocytes Absolute Auto 800 /uL (1100-4500); Lymphocytes Percent Auto 6.6 % (25-40); Mean Corpuscular HGB Conc 34.5 % (30-36); Mean Corpuscular Hemoglobin 33.5 PG (26-34); Monocytes Absolute Auto 100 /uL (0-900); Monocytes Percent Auto 0.9 % (3-14); Neutrophils Absolute Auto 10800 /uL (1500-7000); Neutrophils Percent Auto 92.2 % (50-75); Platelet Count 178 X10^3/uL (150-400); Red Blood Cell Count 4.63 X10^6/uL (4.5-5.9); Red Cell Distribution Width 12.8 % (11.6-14.8); White Blood Cell Count 11.7 X10^3/uL (4.5-11.0)
[2024-04-05 05:54] LABS: D Dimer < 215 ng/ml (<500)
[2024-04-05 05:58] LABS: BUN Creatinine Ratio 15.4 (6-22); Blood Urea Nitrogen 12 mg/dL (9-20); Calcium 9.5 mg/dL (8.4-10.2); Carbon Dioxide 21 mmol/L (22-32); Chloride 101 mmol/L (98-107); Estimated Glomerular Filt Rate > 60 mL/min (>60); Glucose 176 mg/dL (70-100); HEMOLYSIS < 15 (0-50); Potassium 4.2 mmol/L (3.4-5.1); Sodium 132 mmol/L (137-145)
--- NOTE | 2024-04-05 06:33 | PC.NURSE ---
Dr. Renee notified x2 via messaging to order a parameter for high blood pressure to administer Hydralazine 10 mg. PRN. Awaiting order, will monitor & report to day RN.
[2024-04-05] MEDS: ALBUTEROL/IPRATROPIUM 3 ML AMPUL INH ×3 (08:02→19:49)
[2024-04-05] MEDS: DOXYCYCLINE HYCLATE 100 MG TABLET PO ×2 (09:01→21:17)
[2024-04-05] MEDS: AMLODIPINE 5 MG TABLET PO (09:02)
[2024-04-05] MEDS: ENOXAPARIN 40 MG/0.4 ML SYRINGE SUBCUT (09:02)
[2024-04-05] MEDS: MONTELUKAST 10 MG TABLET PO (09:02)
--- NOTE | 2024-04-05 09:34 | CM.DANOTE ---
Initial DCP Assessment Note Pt is a 49 yo male, resident of [place], arrives after running out of his asthma medications with SOB, asthma exacerbation. PCP: None Payer: Self Pay Reviewed chart, met w/patient to introduce self and role. 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 Patient states his insurance coverage should be active now that he started his job, although he does not have his insurance card or new policy number. Strongly encouraged patient to discuss this with his HR dept at [employer]. Discussed medications. Patient reports he ran out of his albuterol. Patient may benefit from a [employer] coupon for albuterol and any other new med needed as he will likely be paying privately; unless he obtains his new insurance policy number/INS card. Patient thinks it is [facility]. Plan: Discharge home w/family, patient eager to discharge today. CM team will plan to follow clinical course closely. NILESH Perez Discharge Planning/Care Management CM Discharge Assessment Start: 04/05/24 09:32 Freq: Status: Active Protocol: Document 04/05/24 09:32 MAURILIO (Rec: 04/05/24 09:34 [id number]) Discharge Planning Assessment Assigned Manufacturing Area Manager NILESH Trinidad DPOA/Assigned Designee Name Nahid Lynch, brother, DENITA Contact Information [phone] or [phone] Advance Directives? No History Provided By Patient,Medical Record Prior Living Arrangements House Household Members family Type of transporation used prior to Drives own vehicle admit Independent with ADL's Yes Is patient alert and oriented? Yes Barriers to Discharge No Comment Patient does not have an insurance card or policy number. Discharge Plan Home Transportation Arrangement Family Referrals Initiated None needed
[2024-04-05] MEDS: NICOTINE 21 MG PATCH TOP (11:20)
--- NOTE | 2024-04-05 14:28 | P.PN_ITS ---
Subjective Subjective Interval history: 49 M smoker, asthma admitted with asthma exacerbation. He had run out of symbicort and albuterol. Remains on supplemental oxygen this afternoon but feeling improved overall. Exam Vital Signs (past 8 hours): - 04/05/24 08:00 04/05/24 08:00 04/05/24 08:03 Temperature 97 F L Pulse Rate 98 H 102 H Respiratory Rate 17 20 Blood Pressure 137/58 L Pulse Oximetry 91 91 Oxygen Delivery Method Nasal Cannula Nasal Cannula Humidification Oxygen Flow Rate 6 04/05/24 12:00 04/05/24 13:12 Temperature 97.4 F L Pulse Rate 105 H Respiratory Rate 17 Blood Pressure 139/81 Pulse Oximetry 91 94 Oxygen Delivery Method Nasal Cannula Oxygen Flow Rate 4 5 Oxygen Delivery Method Nasal Cannula Oxygen Flow Rate 5 Narrative Exam Narrative: Gen: WDWN no acute distress CV: RRR no m/r/g pulm: CTA b/l no wheezing rhonchi rales today Abd: S NT ND Ext: no edema Objective Labs 04/05/24 05:00 04/05/24 05:00 Labs: Laboratory Results - last 24 hr 04/04/24 04/04/24 04/05/24 16:45 17:40 04:05 WBC 13.8 H RBC 5.00 Hgb 16.7 Hct 49.3 MCV 98.6 MCH 33.5 MCHC 33.9 RDW 12.7 Plt Count 190 Neut % (Auto) 60.1 Lymph % (Auto) 26.3 [place] % (Auto) 9.4 Eos % (Auto) 3.5 Baso % (Auto) 0.7 Neut # (Auto) 8300 H Lymph # (Auto) 3600 [place] # (Auto) 1300 H Eos # (Auto) 500 H Baso # (Auto) 100 D-Dimer Sodium 136 L Potassium 4.1 Chloride 102 Carbon Dioxide 25 BUN 8 L Creatinine 0.92 Estimated GFR > 60 BUN/Creatinine Ratio 8.7 Glucose 118 H Calcium 9.3 Total Bilirubin 0.6 AST 23 ALT 19 Alkaline Phosphatase 103 Total Protein 7.6 Albumin 4.8 Globulin 2.8 Albumin/Globulin Ratio 1.7 U Opiates 300ng/mL cut Negative Ur Oxycodone Screen Negative Urine Methadone Screen Negative Ur Barbiturates Screen Negative U Tricyclic Antidepress Negative Ur Phencyclidine Scrn Negative Ur Amphetamines Screen Negative U Methamphetamines Scrn Negative Ur MDMA Scrn (Ecstasy) Negative U Benzodiazepines Scrn Positive H Urine Cocaine Screen Negative U Marijuana (THC) Screen Negative Urine pH Normal Urine Specific [place] Normal Ur Creatinine Normal SARS-CoV-2 (PCR) Negative Influenza A (RT-PCR) Flu a negative Influenza B (RT-PCR) Flu b negative RSV (PCR) Negative 04/05/24 05:00 WBC 11.7 H RBC 4.63 Hgb 15.5 Hct 44.9 MCV 97.0 MCH 33.5 MCHC 34.5 RDW 12.8 Plt Count 178 Neut % (Auto) 92.2 H D Lymph % (Auto) 6.6 L [place] % (Auto) 0.9 L Eos % (Auto) 0.1 L Baso % (Auto) 0.2 Neut # (Auto) 13429 H Lymph # (Auto) 800 L [place] # (Auto) 100 Eos # (Auto) 0 Baso # (Auto) 0 D-Dimer < 215 Sodium 132 L Potassium 4.2 Chloride 101 Carbon Dioxide 21 L BUN 12 Creatinine 0.78 Estimated GFR > 60 BUN/Creatinine Ratio 15.4 Glucose 176 H Calcium 9.5 Total Bilirubin AST ALT Alkaline Phosphatase Total Protein Albumin Globulin Albumin/Globulin Ratio U Opiates 300ng/mL cut Ur Oxycodone Screen Urine Methadone Screen Ur Barbiturates Screen U Tricyclic Antidepress Ur Phencyclidine Scrn Ur Amphetamines Screen U Methamphetamines Scrn Ur MDMA Scrn (Ecstasy) U Benzodiazepines Scrn Urine Cocaine Screen U Marijuana (THC) Screen Urine pH Urine Specific [place] Ur Creatinine SARS-CoV-2 (PCR) Influenza A (RT-PCR) Influenza B (RT-PCR) RSV (PCR) PFSH Social History household members: family Smoking Status: Current every day smoker alcohol intake: current Assessment & Plan Assessment & Plan narrative: 1. asthma exacerbation with moderate persistent asthma with acute respiratory failure with hypoxia- - continue solumedrol q8 today, transition to oral prednisone starting tomorrow AM. Doxycycline also added, will continue. - restart symbicort on discharge - Goal O2 90-96% on supplemental therapy, wean as tolerated. - RT evaluation and treatment, nebulizer therapies ordered. albuterol prn. - Flu/COVID/RSV negative 2. HTN- the pt states that he ran out of all of his medications weeks ago and does not know what BP meds he is on at home, will start on Norvasc. BP improved today. Code: Full, surrogate is patient's brother DVT: Lovenox daily I have utilized all available immediate resources to obtain, update, or review the patient's current medications. Dispo: patient admitted under inpatient status. Plan for discharge home once off supplemental oxygen, likely 1-2 more days. Additional history obtained via discussions with the overnight hospitalist and admitting provider. These discussions contributed to the creation of the above assessment and plan. I have reviewed patient's presenting documentation, labs, and imaging personally. Time-Based Coding :: [TOTAL MINUTES] spent with patient and on the chart (including review of chart, obtaining history, exam, reviewing outside data, placing orders, documenting exam and treatment plan, and counseling patient) on [DATE]. Quality VTE Deep Vein Thrombosis/Pulmonary Embolism Present on Admission: No
--- NOTE | 2024-04-05 14:46 | CM.DPNOTE ---
DCP Cont Patient reports Symbicort has been the most effective asthma medication for him (also the most expensive). Provided patient with GoodRx coupons for Albuterol, Spuriva and Symbicort. Also found a coupon on Symbocort's manufacturers website that patient may be able to use. Patient appreciative. MAURILIO
[2024-04-05] MEDS: OXYCODONE IR 5 MG TABLET PO ×2 (16:57→21:16)
[2024-04-05] MEDS: SENNOSIDES 8.6 MG TABLET 17.2 MG PO (21:17)
[2024-04-06] MEDS: PANTOPRAZOLE DR 20 MG TABLET PO (06:11)
[2024-04-06] MEDS: OXYCODONE IR 5 MG TABLET PO ×4 (06:13→20:12)
[2024-04-06] MEDS: ALBUTEROL 2.5 MG/3 ML NEB (ADULT) INH (06:26)
[2024-04-06 08:00] VITALS: BP 124/79; PULSE 92; RESP 19; TEMP 36.3; O2SAT 95
[2024-04-06] MEDS: HYDROMORPHONE 0.5 MG INJ IV ×2 (08:28→22:39)
[2024-04-06] MEDS: ENOXAPARIN 40 MG/0.4 ML SYRINGE SUBCUT (09:13)
[2024-04-06] MEDS: NICOTINE 21 MG PATCH TOP (09:13)
[2024-04-06] MEDS: DOXYCYCLINE HYCLATE 100 MG TABLET PO ×2 (09:14→20:11)
[2024-04-06] MEDS: AMLODIPINE 5 MG TABLET PO (09:14)
[2024-04-06] MEDS: predniSONE 20 MG TABLET 40 MG PO (09:14)
[2024-04-06] MEDS: MONTELUKAST 10 MG TABLET PO (09:14)
[2024-04-06] MEDS: LORazepam 0.5 MG TABLET PO (09:15)
[2024-04-06] MEDS: SODIUM CHLORIDE 0.9% FLUSH 10 ML IV ×2 (09:15→20:13)
[2024-04-06 09:18] VITALS: O2SAT 92
--- NOTE | 2024-04-06 12:47 | CM.DPNOTE ---
Addendum entered by NILESH Groves 04/06/24 16:48: per TCM team, new pt appt SOC scheduled with Dr. Nava at 3pm on 04/13/24. updated pt, in agreement. CM will include f/u appt in work excuse letter so he can leave work early for appt. pt appreciative. SL Original Note: DCP Note MICROSOFT SYSTEMS ENGINEER reviewed EMR. Per hospitalist in morning rounds, pt can dc once off oxygen. as of 917 per chart, pt remains on 3.5ltrs. MICROSOFT SYSTEMS ENGINEER met with pt in room. Was not able to contact work about ins card. MICROSOFT SYSTEMS ENGINEER gave pt the phone number for [employer] to get policy number. MICROSOFT SYSTEMS ENGINEER gave pt information on scheduling SOC with new PCP in [place]. Pt appreciative of updates. Asked for a work excuse letter, this MICROSOFT SYSTEMS ENGINEER will complete when dc date is known. MICROSOFT SYSTEMS ENGINEER messaged TCM team with heads up that pt is looking to schedule SOC with new provider here. Plan: Discharge home w/family and close OP f/u. Work excuse letter needed. CM team will plan to follow clinical course closely. NILESH Groves
[2024-04-06 13:09] VITALS: PULSE 94; RESP 24; O2SAT 92
[2024-04-06] MEDS: ALBUTEROL/IPRATROPIUM 3 ML AMPUL INH ×2 (13:09→19:50)
[2024-04-06 15:28] VITALS: BP 161/86; PULSE 92; RESP 18; O2SAT 90
--- NOTE | 2024-04-06 16:02 | PM.PN.1 ---
Subjective Subjective Date Patient Seen: 04/06/24 Time Patient Seen: 08:45 Interval history: 49 M smoker, asthma admitted with asthma exacerbation. He had run out of symbicort and albuterol. Remains on supplemental oxygen this afternoon but feeling improved overall. Interval history: He reports to be feeling better but is still requiring 2-3 L of oxygen to maintain oxygen saturations over 92%. Exam Vital Signs (past 8 hours): - 04/06/24 08:18 04/06/24 09:18 04/06/24 13:09 Pulse Rate 94 H Respiratory Rate 24 Blood Pressure Pulse Oximetry 92 92 Oxygen Delivery Method Nasal Cannula Nasal Cannula Nasal Cannula Oxygen Flow Rate 3.5 3.5 04/06/24 15:28 Pulse Rate 92 H Respiratory Rate 18 Blood Pressure 161/86 H Pulse Oximetry 90 L Oxygen Delivery Method Oxygen Flow Rate 1 Oxygen Delivery Method Nasal Cannula Oxygen Flow Rate 1 Narrative Exam Narrative: Gen: WDWN no acute distress CV: RRR no m/r/g pulm: CTA b/l no wheezing rhonchi rales today Abd: S NT ND Ext: no edema Objective Labs 04/05/24 05:00 04/05/24 05:00 [facility] Social History household members: family Smoking Status: Current every day smoker alcohol intake: current Assessment & Plan Assessment & Plan narrative: 1. asthma exacerbation with moderate persistent asthma with acute respiratory failure with hypoxia- - continue solumedrol q8 today, transition to oral prednisone starting 04/06/2024. - continue doxycycline - restart symbicort on discharge - Goal O2 90-96% on supplemental therapy, wean as tolerated. - RT evaluation and treatment, nebulizer therapies ordered. albuterol prn. - Flu/COVID/RSV negative with low D-dimer 2. HTN- the pt states that he ran out of all of his medications weeks ago and does not know what BP meds he is on at home, will start on amlodipine 5 mg daily. BP improved today. 3. Chronic tobacco use. Cessation advised. Continue nicotine patch Code: Full, surrogate is patient's brother DVT: Lovenox daily Dispo: patient admitted under inpatient status. Plan for discharge saul Time-Based Coding :: [TOTAL MINUTES] spent with patient and on the chart (including review of chart, obtaining history, exam, reviewing outside data, placing orders, documenting exam and treatment plan, and counseling patient) on [DATE]. Quality VTE Deep Vein Thrombosis/Pulmonary Embolism Present on Admission: No
[2024-04-06 19:00] VITALS: BP 136/91; PULSE 74; RESP 20; TEMP 37.1; O2SAT 91
[2024-04-06] MEDS: SENNOSIDES 8.6 MG TABLET 17.2 MG PO (20:11)
[2024-04-07 01:00] VITALS: BP 135/94; PULSE 80; RESP 20; TEMP 36.9; O2SAT 92
[2024-04-07] MEDS: ALBUTEROL 2.5 MG/3 ML NEB (ADULT) INH (01:47)
[2024-04-07] MEDS: PANTOPRAZOLE DR 20 MG TABLET PO (05:55)
[2024-04-07] MEDS: OXYCODONE IR 5 MG TABLET PO ×3 (05:55→11:29)
[2024-04-07] MEDS: ALBUTEROL/IPRATROPIUM 3 ML AMPUL INH ×2 (06:10→12:11)
[2024-04-07] MEDS: MONTELUKAST 10 MG TABLET PO (08:48)
[2024-04-07] MEDS: ACETAMINOPHEN 325 MG TABLET 650 MG PO (08:48)
[2024-04-07] MEDS: DOXYCYCLINE HYCLATE 100 MG TABLET PO (08:48)
[2024-04-07] MEDS: AMLODIPINE 5 MG TABLET PO (08:48)
[2024-04-07] MEDS: predniSONE 20 MG TABLET 40 MG PO (08:49)
[2024-04-07] MEDS: NICOTINE 21 MG PATCH TOP (08:49)
[2024-04-07] MEDS: ENOXAPARIN 40 MG/0.4 ML SYRINGE SUBCUT (08:50)
[2024-04-07] MEDS: SODIUM CHLORIDE 0.9% FLUSH 10 ML IV (09:00)
--- NOTE | 2024-04-07 10:58 | CM.DPNOTE ---
DCP Note AUTOMOBILE SERVICE WRITER reviewed EMR. Per hospitalist in morning rounds, pt likely to dc today pending ability to remain on room air. No work restrictions, gave verbal order for work excuse letter. AUTOMOBILE SERVICE WRITER met with pt in room. Pt on room air during assessment. Reported still working on coordinating with work for ins, only was given group number yesterday. Confirmed will call the PCP office with ins information when known. AUTOMOBILE SERVICE WRITER gave him work excuse letter with PCP appt for him to leave work early the as well. Pt denies other CM needs at this time. has a ride. AUTOMOBILE SERVICE WRITER messaged TCM team with group number info and likely GERRY for today. P: anticipate dc today, f/u with Dr. Nava on 04/13/24 at 1500. CM team will continue to follow as needed NILESH Groves
[2024-04-07 12:11] VITALS: PULSE 79; RESP 14; O2SAT 94
--- NOTE | 2024-04-07 13:50 | PC.NURSE ---
Patient VSS, afebrile weaned to RA this a.m. and tolerated well. MD at bedside evaluating patient, and discussing medications. Patient is cleared for discharge home with medications, and encouraged / educated on smoking cessation. He verbalizes understanding of medications and to return to ED for worsening symptoms/ difficulty breathing and plan for him to follow up with MD Nava in x1 week. He ambulates with PLAYER DEVELOPMENT EXECUTIVE to hospital entrance at approximately 1350 for discharge home this afternoon.
--- NOTE | 2024-04-07 19:52 | P.DS_ITS ---
History of Present Illness History of Present Illness Date Patient Seen: 04/07/24 Time Patient Seen: 08:28 Date of Onset of Symptoms: 04/04/24 Chief complaint: Asthma, sob Narrative: The pt started having SOB and chest tightness over the past 4-5 days. He states that he ran out of his albuterol and Spiriva inhaler about 2 weeks ago. The last time he was in the hospital was for his asthma about 2 years ago. He continues to smoke cigarettes a pack daily, no marijuana use, no alcohol use, he works in a [employer] making [employer] and believes there are irritants to his breathing there. He has not been exposed to known illness, no recent immunizations, no fevers, chills, or productive sputum. Discharge Providers Provider Date of admission: 04/04/24 19:54 Discharge Date: 04/07/24 Primary care physician: Doctor Jamaal MD Discharge provider: Nico Erwin MD Summary Hospital Course Discharge Diagnosis: 1. Asthma exacerbation with underlying moderate persistent asthma 2. Acute hypoxic respiratory failure due to 1. 3. Hypertension 4. Chronic tobacco use Hospital Course: The patient was admitted and treated with IV steroids, frequent Mr. bronchodilators, doxycycline and supplemental oxygen. He had moved to the area recently from [place] and ran out of medications, and not yet established care with a local primary care provider. He also continued to smoke cigarettes. There was no evidence of underlying pneumonia or pulmonary embolism to account for symptoms or hypoxemia. He improved significantly over subsequent days and was weaned off oxygen. Smoking cessation was advised. He was provided with a nicotine patch during the admission and at discharge. He had a longstanding history of hypertension and could not remember the name of the home blood pressure medication that he was on previously. He was started on amlodipine 5 mg daily. No other issues arose. Status at Discharge Cognitive/behavioral status at discharge: oriented Functional status at discharge: independent ambulation Overall status at discharge: patient is back to baseline Time Spent with Patient Time spent: Less than 30 minutes Exam Vital Signs (past 8 hours): - 04/07/24 12:11 Pulse Rate 79 Respiratory Rate 14 Pulse Oximetry 94 Oxygen Delivery Method Room Air Oxygen Delivery Method Room Air Oxygen Flow Rate 1 Narrative Exam Narrative: Gen: Appears comfortable in no apparent distress. Cardiac: Regular rate and rhythm without murmurs. Lungs: Clear to auscultation bilaterally Abdomen: Soft, nontender, nondistended. Extremities: No edema Objective Imaging Chest x-ray: Radiologist's impression: No acute cardiopulmonary abnormality is seen. Labs 04/05/24 05:00 04/05/24 05:00 [facility] Social History household members: family Smoking Status: Current every day smoker alcohol intake: current Discharge Plan Discharge Plan Patient Disposition: Home Provider Discharge Comment: Followup with Dr. Nava within 1 week Discharge orders & Medications Prescriptions: New amlodipine [Norvasc] 5 mg Tablet 5 mg PO DAILY Qty: 30 0RF nicotine 21 mg/24 hr Patch 24 Hour 21 mg topical DAILY Qty: 30 0RF montelukast 10 mg Tablet 10 mg PO DAILY Qty: 30 0RF doxycycline hyclate 100 mg Tablet 100 mg PO BID Qty: 8 0RF prednisone 10 mg tablet See Rx Instructions .ROUTE .COMPLEX Qty: 20 0RF Rx Instructions: administer with food or milk; 40mg daily x 2 days, then 30mg daily x 2 days, then 20mg daily x 2 days, then 10mg daily x 2 days oxycodone 5 mg Tablet 5 mg PO Q3HR PRN (Reason: Pain, Severe (7-10)) Qty: 14 0RF budesonide-formoterol [Symbicort] 160-4.5 mcg/actuation HFA aerosol inhaler 1 inh inhalation BID Qty: 10.2 0RF albuterol sulfate 90 mcg/actuation HFA aerosol inhaler 2 puff inhalation Q6H PRN (Reason: shortness of breath or wheezing) Qty: 8.5 0RF Discontinued Primatene Mist 2 puff inhalation Q4HR PRN (Reason: Asthma) Follow up/Referrals: Miscellaneous,Doctor, [Primary Care Provider] - Activity Restrictions/Additional Instructions: Please read the discharge instructions sheet carefully and bring all papers to all doctor follow-up visits, as it may contain information that your doctor may want to see. Disease processes change and evolve, if your symptoms worsen or if you develop any new symptoms that are concerning to you please return for evaluation. Your evaluation today does not show any evidence of any life- threatening/serious illnesses requiring admission to the hospital or surgery. Please follow-up with your doctor for re-evaluation in approximately 1 day. Seek immediate medical attention for any worrisome symptoms. Visit Report/Discharge Packet Stand Alone Forms: Patient Portal/API Discharge Data Primary Care Provider: Miscellaneous,Doctor Quality VTE Deep Vein Thrombosis/Pulmonary Embolism Present on Admission: No MIPS - Admit I confirm the patient?s Advance Care Plan is present, Code status is documented, Surrogate decision maker is in patient?s record [If Yes, STOP here]: Yes MIPS - Meds 'Current medications' to include all prescriptions, oloe-nkt-eioxxrt products, herbals, cannabis/cannabidiol products, and vitamin/mineral/dietary (nutritional) supplements. I have utilized all available resources to obtain, update, or review the patient?s current medications. [If Yes, STOP here]: Yes MIPS - DC The patient has a history of heart transplant or Left Ventricular Assist Device (LVAD). If yes, STOP here.: No The patient has current or prior documentation of left ventricular ejection fraction (LVEF) less than or equal to 40%, or moderate or severely depressed left ventricular systolic function.: No A. The patient was prescribed or already taking an Angiotensin-Converting Enzyme (PRIMO) Inhibitor, or Angiotensin Receptor Paulina (ARB).: No B. The patient was prescribed or already taking a beta-paulina. [If Yes to Both A & B, STOP here]: No Patient not prescribed/taking PRIMO or ARB, no reason given.: No Patient not prescribed/taking beta-paulina, no reason given.: No [facility] PROFEE Charge Codes Discharge inpatient/observation: [id number]
== END 2024-04-07 13:53 | disposition home or self-care (01) | DRG 189 ==
LOC: ED 19:39 → AC 04-05 09:19
PROVIDERS: Student in an Organized Health Care Education/Training Program; Admitting Provider Internal Medicine; Emergency Provider Emergency Medicine; Referring Provider Emergency Medicine; Visit Provider Internal Medicine
DX: J96.01 Acute respiratory failure with hypoxia (principal); J45.41 Moderate persistent asthma with (acute) exacerbation; I10 Essential (primary) hypertension; Z72.0 Tobacco use
CPT/HCPCS: 0241U; 36415; 71045; 80048; 80053; 80305; 85025; 85379; 94640; 94762; 96365; 96375; 99285; J1171; J1650; J2919; J3475; J7613

== ENCOUNTER 2024-04-13 14:50 | Emergency (ER) | payer OTHER, SELFPAY ==
[2024-04-04 21:50] VITALS: BMI 22.1
[2024-04-13] VITALS (15 sets, daily range): BP systolic 116–162; BP diastolic 72–103; PULSE 90–105; RESP 12–22; TEMP 36.6; O2SAT 91–99; BMI 23.1
--- NOTE | 2024-04-13 15:02 | DI.RAD.S_ITS ---
PROCEDURE: XR CHEST 1V INDICATIONS: Shortness of breath TECHNIQUE: One view of the chest was acquired. COMPARISON: [facility], , XR CHEST 1V, 04/04/2024, 16:57. FINDINGS: Surgical changes and devices: None. Lungs and pleura: Lungs are clear. No pleural effusions or pneumothorax. Mediastinum: Mediastinal contours appear normal. Heart size is normal. Bones and chest wall: No suspicious bony lesions. Overlying soft tissues appear unremarkable. Old right rib fractures. IMPRESSION: No acute pulmonary process. Dictated by: Britney Sr M.D. on 04/13/2024 at 15:32 Approved by: Britney Sr M.D. on 04/13/2024 at 15:33
[2024-04-13 15:20] LABS: Add Manual Diff / Slide Review NO; Basophils Absolute Auto 100 /uL (0-100); Basophils Percent Auto 0.9 % (0-2); Eosinophils Absolute Auto 1000 /uL (0-450); Eosinophils Percent Auto 6.8 % (2-4); Hematocrit 47.5 % (41-53); Lymphocytes Absolute Auto 2800 /uL (1100-4500); Lymphocytes Percent Auto 19.6 % (25-40); Mean Corpuscular HGB Conc 33.8 % (30-36); Mean Corpuscular Volume 97.7 fL (80-100); Monocytes Absolute Auto 1500 /uL (0-900); Monocytes Percent Auto 10.4 % (3-14); Neutrophils Absolute Auto 9000 /uL (1500-7000); Neutrophils Percent Auto 62.3 % (50-75); Platelet Count 346 X10^3/uL (150-400); Red Blood Cell Count 4.86 X10^6/uL (4.5-5.9); White Blood Cell Count 14.4 X10^3/uL (4.5-11.0)
[2024-04-13 15:26] LABS: Prothrombin Time 11.3 SECONDS (9.4-12.5)
[2024-04-13 15:30] LABS: Lactate (Lactic Acid) 0.9 mmol/L (0.7-2.1)
[2024-04-13 15:31] LABS: Alanine Aminotransferase 24 IU/L (<50); Albumin Globulin Ratio 1.6 (1.0-2.8); Alkaline Phosphatase 73 U/L (38-126); Aspartate Aminotransferase 21 IU/L (17-59); Bilirubin Total 0.6 mg/dL (0.2-1.3); Blood Urea Nitrogen 20 mg/dL (9-20); Calcium 8.7 mg/dL (8.4-10.2); Carbon Dioxide 25 mmol/L (22-32); Chloride 104 mmol/L (98-107); Estimated Glomerular Filt Rate > 60 mL/min (>60); Globulin 2.5 g/dL (1.7-4.1); Glucose 106 mg/dL (70-100); HEMOLYSIS 34 (0-50); Potassium 4.1 mmol/L (3.4-5.1); Sodium 136 mmol/L (137-145); Total Protein 6.5 g/dL (6.3-8.2)
[2024-04-13 15:42] LABS: NT-proBNP (BNP-Adult 18+) 21 pg/mL (<125); Troponin I < 0.012 ng/mL (0.01-0.034)
[2024-04-13] MEDS: ALBUTEROL 2.5 MG/3 ML NEB (ADULT) 20 MG INH (15:49)
--- NOTE | 2024-04-13 16:50 | ED_ITS ---
HPI - General Adult General Chief complaint: Shortness of Breath/Dyspnea Stated complaint: SOB Time Seen by Provider: 04/13/24 15:47 Source: patient Mode of arrival: Wheelchair History of Present Illness HPI narrative: 49-year-old gentleman with probable history of asthma admitted to the hospital and discharged on April 06 with an acute asthma exacerbation. He is finished his steroid taper, was unable to fill his budesonide due to insurance reason but is hoping to be able to do so within the next week. Had a follow up with his primary care physician that was canceled and comes to the emergency department with increasing wheeze. Saturations are appropriate, he is able to speak in full sentences he has mild wheezing in all lung torres and I suspect it is mild only because there is such a poor overall air flow. He is started on a extended nebulizer. He notes that he has not been having significantly productive sputum, he did finish antibiotics prescribed in the emergency department. He has been using his albuterol MDI with spacer but does not have any current nebulizer solution. He is not complaining of palpitations but notes that his chest is hurting overall from the severity of the coughing from his asthma. No abdominal pain, nausea or vomiting. No fevers Related Data Previous Rx's Medication Instructions Recorded albuterol sulfate 90 mcg/actuation 2 puff inhalation Q6H PRN 04/07/24 aerosol inhaler shortness of breath or wheezing #8.5 grams amlodipine 5 mg tablet (Norvasc) 5 mg PO DAILY #30 tabs 04/07/24 budesonide-formoterol HFA 160 1 inh inhalation BID #10.2 grams 04/07/24 mcg-4.5 mcg/actuation aerosol inhaler (Symbicort) doxycycline hyclate 100 mg tablet 100 mg PO BID #8 tabs 04/07/24 montelukast 10 mg tablet 10 mg PO DAILY #30 tabs 04/07/24 nicotine 21 mg/24 hr daily 21 mg topical DAILY #30 ea 04/07/24 transdermal patch oxycodone 5 mg tablet 5 mg PO Q3HR PRN Pain, Severe 04/07/24 (7-10) #14 tabs prednisone 10 mg tablet See Rx Instructions .Route 04/07/24 .COMPLEX #20 tabs albuterol sulfate 5 mg/mL(0.5 %) 5 mg inhalation Q6H PRN shortness 04/13/24 solution for nebulization of breath or wheezing #75 mL oxycodone-acetaminophen 5 mg-325 1 tab PO Q6H PRN pain #14 tabs 04/13/24 mg tablet prednisone 10 mg tablet 10 mg PO DAILY #31 tabs 04/13/24 Allergies Allergy/AdvReac Type Severity Reaction Status Date / Time No Known Drug Allergies Allergy Verified 04/13/24 15:02 Review of Systems Review of Systems Narrative: Pertinent positive and negative findings as per HPI Patient History Medical History (Updated 04/13/24 @ 17:42 by Meggan Barrett MD) Asthma Social History household members: family Smoking Status: Former smoker alcohol intake: current Smoking Status: Former smoker tobacco type: cigarettes alcohol intake frequency: 0-2 drinks per day Alcohol type: beer Substance Use Type: does not use Exam Initial Vital Signs Initial Vital Signs: Vital Signs Temperature 97.8 F 04/13/24 14:57 Pulse Rate 98 H 04/13/24 14:57 Respiratory Rate 18 04/13/24 14:57 Blood Pressure 136/90 04/13/24 14:57 Pulse Oximetry 94 04/13/24 14:57 Oxygen Delivery Method Room Air 04/13/24 14:57 General: Healthy appearing, in moderate respiratory distress but Able to give a complete and coherent history. Well-nourished well-developed HEENT: Dry mucous membranes, normal sclera with reactive pupils, Respiratory: Poor overall air movement, what is moving does seem to be wheezing. He has not using significant accessory muscles Cardiac: Tachycardic without murmurs Abdomen: Soft, nontender, good bowel tones, no flank pain Skin: Warm and dry, no rashes Neurologic: Grossly neurologically intact with no obvious asymmetries or abnormalities Extremities: No trauma, well perfused Psych: Cooperative, appropriate insight and affect Course Orders Ordered: ED Orders 04/13/24 15:02 XR chest 1V Stat EKG-12 Lead Stat Measure peak expiratory flow ONCE RT Consult Eval and Treat NOW 04/13/24 15:05 Complete Blood Count AUTO DIFF Stat Comprehensive Metabolic Panel Stat Lactate (Lactic Acid) Stat NT-proBNP (BNP-Adult 18+) Stat Prothrombin Time INR Stat Troponin I Stat Discontinued Medications Albuterol (Albuterol 2.5 Mg/3 Ml Neb (Adult)) 20 mg INH NOW ONE Stop: 04/13/24 15:47 Last Admin: 04/13/24 15:49 Dose: 20 mg Documented By: LEXI Ketorolac Tromethamine (Ketorolac 30 Mg/Ml Vial) 15 mg IV NOW ONE Stop: 04/13/24 17:25 Last Admin: 04/13/24 17:30 Dose: 15 mg Documented By: LORETO Methylprednisolone (Methylprednisolone 125 Mg/2 Ml Vial) 60 mg IV NOW ONE Stop: 04/13/24 17:36 Last Admin: 04/13/24 17:46 Dose: 60 mg Documented By: LORETO Vital Signs Vital signs: Vital Signs - 8 hr 04/13/24 14:57 04/13/24 15:37 04/13/24 15:40 Temperature 97.8 F Pulse Rate 98 H 105 H 93 H Respiratory Rate 18 Blood Pressure 136/90 Pulse Oximetry 94 92 92 Oxygen Delivery Method Room Air Oxygen Flow Rate Fraction of Inspired Oxygen 04/13/24 15:40 04/13/24 15:52 04/13/24 15:52 Temperature Pulse Rate 94 H Respiratory Rate 18 Blood Pressure 153/103 H 162/103 H Pulse Oximetry 93 Oxygen Delivery Method Room Air Oxygen Flow Rate 0 Fraction of Inspired Oxygen 04/13/24 15:53 04/13/24 16:00 04/13/24 16:00 Temperature Pulse Rate 97 H 92 H Respiratory Rate 22 Blood Pressure 144/81 H Pulse Oximetry 93 99 Oxygen Delivery Method Room Air Oxygen Flow Rate 0 Fraction of Inspired Oxygen 21 04/13/24 16:16 04/13/24 16:16 04/13/24 16:30 Temperature Pulse Rate 90 100 H Respiratory Rate 18 13 Blood Pressure 117/83 Pulse Oximetry 99 99 Oxygen Delivery Method Oxygen Flow Rate Fraction of Inspired Oxygen 04/13/24 16:30 04/13/24 16:45 04/13/24 16:45 Temperature Pulse Rate 97 H Respiratory Rate 12 Blood Pressure 117/88 134/75 Pulse Oximetry 98 Oxygen Delivery Method Oxygen Flow Rate Fraction of Inspired Oxygen 04/13/24 17:00 04/13/24 17:00 04/13/24 17:15 Temperature 97.8 F Pulse Rate 105 H 104 H Respiratory Rate 16 15 Blood Pressure 161/87 H Pulse Oximetry 98 92 Oxygen Delivery Method Oxygen Flow Rate Fraction of Inspired Oxygen 04/13/24 17:15 04/13/24 17:30 04/13/24 17:31 Temperature Pulse Rate 103 H 101 H Respiratory Rate 14 13 Blood Pressure 140/72 Pulse Oximetry 91 92 Oxygen Delivery Method Oxygen Flow Rate Fraction of Inspired Oxygen 04/13/24 17:31 04/13/24 17:45 04/13/24 17:45 Temperature 97.8 F Pulse Rate 98 H Respiratory Rate 16 Blood Pressure 116/76 128/78 Pulse Oximetry 92 92 Oxygen Delivery Method Nasal Cannula Oxygen Flow Rate 2 Fraction of Inspired Oxygen 04/13/24 17:51 Temperature Pulse Rate Respiratory Rate 15 Blood Pressure Pulse Oximetry 92 Oxygen Delivery Method Room Air Oxygen Flow Rate Fraction of Inspired Oxygen Medical Decision Making Lab Data 04/13/24 15:05 04/13/24 15:05 Labs: Lab Results 04/13/24 Range/Units 15:05 WBC 14.4 H (4.5-11.0) X10^3/uL RBC 4.86 (4.5-5.9) X10^6/uL Hgb 16.0 (13.5-17.5) g/dL Hct 47.5 (41-53) % MCV 97.7 (80-100) fL MCH 33.0 (26-34) PG MCHC 33.8 (30-36) % RDW 13.0 (11.6-14.8) % Plt Count 346 (150-400) X10^3/uL Neut % (Auto) 62.3 (50-75) % Lymph % (Auto) 19.6 L (25-40) % Alexander % (Auto) 10.4 (3-14) % Eos % (Auto) 6.8 H (2-4) % Baso % (Auto) 0.9 (0-2) % Neut # (Auto) 9000 H (1999-7796) /uL Lymph # (Auto) 2800 (3021-6693) /uL Alexander # (Auto) 1500 H (0-900) /uL Eos # (Auto) 1000 H (0-450) /uL Baso # (Auto) 100 (0-100) /uL PT 11.3 (9.4-12.5) SECONDS INR 1.0 (0.9-1.3) Sodium 136 L (137-145) mmol/L Potassium 4.1 (3.4-5.1) mmol/L Chloride 104 (98-107) mmol/L Carbon Dioxide 25 (22-32) mmol/L BUN 20 (9-20) mg/dL Creatinine 0.91 (0.66-1.25) mg/dL Estimated GFR > 60 (>60) mL/min BUN/Creatinine Ratio 22.0 (6-22) Glucose 106 H (70-100) mg/dL Lactate 0.9 (0.7-2.1) mmol/L Calcium 8.7 (8.4-10.2) mg/dL Total Bilirubin 0.6 (0.2-1.3) mg/dL AST 21 (17-59) IU/L ALT 24 (<50) IU/L Alkaline Phosphatase 73 (38-126) U/L Troponin I < 0.012 (0.01-0.034) ng/mL NT-Pro-B Natriuret Pep 21 (<125) pg/mL Total Protein 6.5 (6.3-8.2) g/dL Albumin 4.0 (3.5-5.0) g/dL Globulin 2.5 (1.7-4.1) g/dL Albumin/Globulin Ratio 1.6 (1.0-2.8) MDM Narrative Medical decision making narrative: CC: Wheezing Complicating co-morbidities: Recent hospitalization discharged on April 06 for acute asthma exacerbation Data collected from: patient Social determinants of health that may influence the patients condition: Recently moved to the area has not yet established primary care physician is waiting for insurance health card from his new job Medical records reviewed: Recent admission with discharge reviewed Differential considered: Persistent asthma exacerbation, allergic reaction, viral pneumonia, bacterial pneumonia, pneumothorax Exam documented above, pertinent findings include: 49-year-old gentleman who has overall poor air movement with moderate amount of wheeze that increases significantly as his nebulizer treatment continues. No rhonchi. Remainder of exam is benign Lab Test results independently reviewed as above. Pertinent findings: CBC shows mild leukocytosis consistent with recent steroid use Chemistries are reassuring Troponin is undetectable Imaging studies independently reviewed: Chest x-ray shows no infiltrates minimal hyperinflation no pneumothorax Treatments: 20 mg of albuterol nebulized, IV Toradol for rib pain, 60 mg of Solu-Medrol Re-evaluations: Still wheezing but dramatically improved from arrival after the extended nebulizer and IV steroid Discussion: 49-year-old gentleman with mild persistent asthma with acute flare recently hospitalized needing a is a longer steroid taper. At this point I do not appreciate any bacterial overriding symptoms and we will not suggest additional antibiotics. We will place him on a 2 week prednisone taper 40 mg to 5 mg, he has given a prescription for albuterol nebulized solution. Hopefully the prednisone in the nebulized albuterol we will help tide him over until his insurance cards come and he is able to fill his budesonide prescription. He will schedule follow up with his primary care physician to continue working on establishing care in the area. At this time there was no indication of severe respiratory distress indication for hospitalization or need for additional imaging. Questions are answered and he is safe for discharge Discharge Plan Departure Patient Disposition: Home Clinical Impression: Asthma with exacerbation Qualifiers: Asthma severity: moderate Asthma persistence: persistent Qualified Code(s): J 45.41 - Moderate persistent asthma with (acute) exacerbation Instructions: DI for Asthma -- Adult Activity Restrictions/Additional Instructions: Thank you for coming in today It sounds like you need a bit more TLC after your recent asthma exacerbation. You were given additional steroid in your IV today. I am going to recommend a prednisone taper over the next 2 weeks. Starting at 40 mg for 4 days, 20 mg for 4 days, 10 mg for 4 days I have given you a prescription for albuterol nebulized solution, hopefully this is a bit less expensive than the inhalers I have given you a prescription for Percocet to help with the pain and cough suppression after the severe coughing for the last weeks All prescriptions were electronically transmitted to [facility] in [place] You do need to get back on your budesonide, you do need to continue your regularly scheduled albuterol MDI and you definitely need to reschedule an appointment with your primary care physician to make sure that you do have a primary care link here in the community. If you find that you are getting worse or develop any new symptoms, please feel free to return to the emergency department for further evaluation. Prescriptions: New albuterol sulfate 5 mg/mL solution for nebulization 5 mg inhalation Q6H PRN (Reason: shortness of breath or wheezing) Qty: 75 3RF prednisone 10 mg tablet 10 mg PO DAILY Qty: 31 0RF Rx Instructions: 40 mg for 4 days, 20 mg for 4 days, 10 mg for 4 days, 5 mg for 6 days oxycodone-acetaminophen 5-325 mg tablet 1 tab PO Q6H PRN (Reason: pain) Qty: 14 0RF No Action amlodipine [Norvasc] 5 mg Tablet 5 mg PO DAILY Qty: 30 0RF nicotine 21 mg/24 hr Patch 24 Hour 21 mg topical DAILY Qty: 30 0RF montelukast 10 mg Tablet 10 mg PO DAILY Qty: 30 0RF doxycycline hyclate 100 mg Tablet 100 mg PO BID Qty: 8 0RF prednisone 10 mg tablet See Rx Instructions .ROUTE .COMPLEX Qty: 20 0RF Rx Instructions: administer with food or milk; 40mg daily x 2 days, then 30mg daily x 2 days, then 20mg daily x 2 days, then 10mg daily x 2 days oxycodone 5 mg Tablet 5 mg PO Q3HR PRN (Reason: Pain, Severe (7-10)) Qty: 14 0RF budesonide-formoterol [Symbicort] 160-4.5 mcg/actuation HFA aerosol inhaler 1 inh inhalation BID Qty: 10.2 0RF albuterol sulfate 90 mcg/actuation HFA aerosol inhaler 2 puff inhalation Q6H PRN (Reason: shortness of breath or wheezing) Qty: 8.5 0RF Referrals: Miscellaneous,Doctor, MD [Primary Care Provider] - Stand Alone Forms: Patient Portal/API
[2024-04-13] MEDS: KETOROLAC 30 MG/ML VIAL 15 MG IV (17:30)
[2024-04-13] MEDS: methylPREDNISolone 125 MG/2 ML VIAL 60 MG IV (17:46)
== END 2024-04-13 17:58 | disposition home or self-care (01) ==
PROVIDERS: Emergency Provider Emergency Medicine
DX: J45.41 Moderate persistent asthma with (acute) exacerbation (principal); R03.0 Elevated blood-pressure reading, without diagnosis of hypertension
CPT/HCPCS: 36415; 71045; 80053; 83605; 83880; 84484; 85025; 85610; 94640; 96374; 96375; 99285; J1885; J2919; J7613

== ENCOUNTER 2024-04-20 11:37 | Emergency (ER) | payer OTHER, SELFPAY ==
[2024-04-04 21:50] VITALS: BMI 22.1
[2024-04-20] VITALS (14 sets, daily range): BP systolic 143–162; BP diastolic 80–97; PULSE 98–117; RESP 13–36; TEMP 37.1; O2SAT 91–98; BMI 236.2
[2024-04-20] MEDS: ALBUTEROL/IPRATROPIUM 3 ML AMPUL INH (11:48)
--- NOTE | 2024-04-20 12:09 | ED.GENADULT ---
HPI - General Adult General Chief complaint: Shortness of Breath/Dyspnea Stated complaint: diff breathing Time Seen by Provider: 04/20/24 12:09 Source: patient and family Mode of arrival: Wheelchair History of Present Illness HPI narrative: 49-year-old gentleman recently moved to the area admitted for asthma exacerbation on April 04 discharged on the . Seen back in the ER on the after stopping steroids with longer steroid taper prescribed. Budesonide was prescribed however could not afford it was seen in the walk-in clinic the following day with a prescription for QVAR given. Patient presents today with significant respiratory distress recurrent wheezing. Prednisone discontinued 48 hours ago, nebulizers at home or not effective Related Data Previous Rx's Medication Instructions Recorded albuterol sulfate 90 mcg/actuation 2 puff inhalation Q6H PRN 04/07/24 aerosol inhaler shortness of breath or wheezing #8.5 grams amlodipine 5 mg tablet (Norvasc) 5 mg PO DAILY #30 tabs 04/07/24 doxycycline hyclate 100 mg tablet 100 mg PO BID #8 tabs 04/07/24 montelukast 10 mg tablet 10 mg PO DAILY #30 tabs 04/07/24 nicotine 21 mg/24 hr daily 21 mg topical DAILY #30 ea 04/07/24 transdermal patch albuterol sulfate 5 mg/mL(0.5 %) 5 mg inhalation Q6H PRN shortness 04/13/24 solution for nebulization of breath or wheezing #75 mL oxycodone-acetaminophen 5 mg-325 1 tab PO Q6H PRN pain #14 tabs 04/13/24 mg tablet prednisone 10 mg tablet 10 mg PO DAILY #31 tabs 04/13/24 beclomethasone dipropionate 40 1 inh inhalation Q12H #10.6 grams 04/14/24 mcg/actuation HFA breath activated aerosol (Qvar RediHaler) oxycodone-acetaminophen 5 mg-325 1 tab PO Q6H PRN pain #10 tabs 04/20/24 mg tablet prednisone 10 mg tablet 10 mg PO DIRECTED #60 tabs 04/20/24 Allergies Allergy/AdvReac Type Severity Reaction Status Date / Time No Known Drug Allergies Allergy Verified 04/14/24 18:21 Review of Systems Review of Systems Narrative: Pertinent positive and negative findings as per HPI Patient History Medical History Asthma Social History household members: family Smoking Status: Former smoker alcohol intake: current Smoking Status: Former smoker tobacco type: cigarettes alcohol intake frequency: a few times a month Alcohol type: beer Substance Use Type: does not use Exam Initial Vital Signs Initial Vital Signs: Vital Signs Pulse Rate 117 H 04/20/24 11:41 Pulse Oximetry 94 04/20/24 11:41 General: Healthy appearing, in no acute distress. Able to give a complete and coherent history. Well-nourished well-developed HEENT: Moist mucous membranes, normal sclera with reactive pupils, Respiratory: Lungs with significant wheezing in all lung torres, overall poor movement, tripoding with accessory muscle use Cardiac: Tachycardic without murmurs Abdomen: Soft, nontender, good bowel tones, no flank pain Skin: Warm and dry, no rashes Neurologic: Grossly neurologically intact with no obvious asymmetries or abnormalities Extremities: No trauma, well perfused Psych: Cooperative, appropriate insight and affect Course Orders Ordered: ED Orders 04/20/24 11:44 BNP [NT-proBNP (BNP-Adult 18+)] Stat Complete Blood Count AUTO DIFF Stat Comprehensive Metabolic Panel Stat Lactate (Lactic Acid) Stat Trop I [Troponin I] Stat 04/20/24 12:15 CT angio chest PE protocol Stat 04/20/24 13:29 Respiratory Panel (Film Array) Stat Discontinued Medications Albuterol (Albuterol 2.5 Mg/3 Ml Neb (Adult)) 20 mg INH NOW ONE Stop: 04/20/24 12:17 Last Admin: 04/20/24 12:22 Dose: 20 mg Documented By: LINDA Albuterol/Ipratropium (Albuterol/Ipratropium 3 Ml Ampul) 3 ml INH NOW ONE Stop: 04/20/24 11:46 Last Admin: 04/20/24 11:48 Dose: 3 ml Documented By: PRO Sodium Chloride (Normal Saline 0.9%) 1,000 mls @ 1,000 mls/hr IV BOLUS ONE Stop: 04/20/24 13:14 Last Infusion: 04/20/24 13:41 Dose: Infused Documented By: Admin: 04/20/24 12:33 Dose: 1,000 mls/hr Documented By: MEGHANN Magnesium Sulfate (Magnesium Sulfate) 2 gm in 50 mls @ 150 mls/hr IV NOW ONE Stop: 04/20/24 12:34 Last Infusion: 04/20/24 13:14 Dose: Infused Documented By: MEGHANN Co-signed By: NAVDEEP Admin: 04/20/24 12:27 Dose: 150 mls/hr Documented By: MEGHANN Co-signed By: PRO Methylprednisolone (Methylprednisolone 125 Mg/2 Ml Vial) 125 mg IV NOW ONE Stop: 04/20/24 12:16 Last Admin: 04/20/24 12:32 Dose: 125 mg Documented By: MEGHANN Oxycodone/Acetaminophen (Oxycodone/Acetaminophen 5/325 Tablet) 1 tab PO NOW ONE Stop: 04/20/24 13:52 Last Admin: 04/20/24 13:55 Dose: 1 tab Documented By: MEGHANN Vital Signs Vital signs: Vital Signs - 8 hr 04/20/24 11:41 04/20/24 11:46 04/20/24 11:47 Temperature 98.8 F Pulse Rate 117 H 115 H 110 H Respiratory Rate 36 H Blood Pressure Pulse Oximetry 94 91 96 Oxygen Delivery Method Room Air Oxygen Flow Rate 04/20/24 11:47 04/20/24 11:58 04/20/24 12:00 Temperature Pulse Rate 108 H 114 H Respiratory Rate 20 Blood Pressure 147/97 H Pulse Oximetry 96 94 Oxygen Delivery Method Room Air Oxygen Flow Rate 04/20/24 12:00 04/20/24 12:32 04/20/24 12:36 Temperature Pulse Rate 111 H 108 H Respiratory Rate Blood Pressure 150/88 H Pulse Oximetry 96 95 Oxygen Delivery Method Oxygen Flow Rate 04/20/24 12:36 04/20/24 13:00 04/20/24 13:00 Temperature Pulse Rate 107 H Respiratory Rate Blood Pressure 162/94 H 157/92 H Pulse Oximetry 95 Oxygen Delivery Method Oxygen Flow Rate 04/20/24 13:30 04/20/24 13:30 04/20/24 14:00 Temperature Pulse Rate 106 H 109 H Respiratory Rate Blood Pressure 153/80 H Pulse Oximetry 93 91 Oxygen Delivery Method Oxygen Flow Rate 04/20/24 14:00 04/20/24 14:30 04/20/24 14:30 Temperature Pulse Rate 106 H 106 H Respiratory Rate 18 22 Blood Pressure 144/94 H Pulse Oximetry 91 92 Oxygen Delivery Method Room Air Oxygen Flow Rate 2 04/20/24 14:30 04/20/24 15:00 04/20/24 15:00 Temperature Pulse Rate 101 H Respiratory Rate 16 Blood Pressure 152/94 H 143/82 H Pulse Oximetry 93 Oxygen Delivery Method Oxygen Flow Rate 04/20/24 15:30 Temperature Pulse Rate 101 H Respiratory Rate 13 Blood Pressure Pulse Oximetry 92 Oxygen Delivery Method Oxygen Flow Rate Medical Decision Making Lab Data 04/20/24 11:44 04/20/24 11:44 Labs: Lab Results 04/20/24 04/20/24 Range/Units 11:44 13:29 WBC 13.4 H (4.5-11.0) X10^3/uL RBC 4.68 (4.5-5.9) X10^6/uL Hgb 15.5 (13.5-17.5) g/dL Hct 45.5 (41-53) % MCV 97.2 (80-100) fL MCH 33.1 (26-34) PG MCHC 34.0 (30-36) % RDW 12.9 (11.6-14.8) % Plt Count 268 (150-400) X10^3/uL Neut % (Auto) 62.9 (50-75) % Lymph % (Auto) 19.6 L (25-40) % [place]isco[place] % (Auto) 10.9 (3-14) % Eos % (Auto) 5.9 H (2-4) % Baso % (Auto) 0.7 (0-2) % Neut # (Auto) 8400 H (5196-4399) /uL Lymph # (Auto) 2600 (9180-5482) /uL [place] # (Auto) 1500 H (0-900) /uL Eos # (Auto) 800 H (0-450) /uL Baso # (Auto) 100 (0-100) /uL Sodium 137 (137-145) mmol/L Potassium 4.2 (3.4-5.1) mmol/L Chloride 103 (98-107) mmol/L Carbon Dioxide 26 (22-32) mmol/L BUN 12 (9-20) mg/dL Creatinine 0.77 (0.66-1.25) mg/dL Estimated GFR > 60 (>60) mL/min BUN/Creatinine Ratio 15.6 (6-22) Glucose 124 H (70-100) mg/dL Lactate 1.8 (0.7-2.1) mmol/L Calcium 8.9 (8.4-10.2) mg/dL Total Bilirubin 0.9 (0.2-1.3) mg/dL AST 40 (17-59) IU/L ALT 29 (<50) IU/L Alkaline Phosphatase 87 (38-126) U/L Troponin I < 0.012 (0.01-0.034) ng/mL NT-Pro-B Natriuret Pep 31 (<125) pg/mL Total Protein 6.6 (6.3-8.2) g/dL Albumin 4.1 (3.5-5.0) g/dL Globulin 2.5 (1.7-4.1) g/dL Albumin/Globulin Ratio 1.6 (1.0-2.8) Chlamy pneumoniae PCR Not detected (Not Detect) Adenovirus (PCR) Not detected (Not Detect) B. pertussis DNA (PCR) Not detected (Not Detect) B.parapertussis DNA PCR Not detected (Not Detecte) Coronavirus OC43 (PCR) Not detected (Not Detect) Coronavirus HKU1 (PCR) Not detected (Not Detect) Coronavirus 229E (PCR) Not detected (Not Detect) SARS-CoV-2 (PCR) Not detected (Not Detecte) Coronavirus NL63 (PCR) Not detected (Not Detect) Human Metapneumovir PCR Not detected (Not Detect) Influenza Type A (PCR) Not detected (Not Detect) Influenza Type B (PCR) Not detected (Not Detect) M. pneumoniae (PCR) Not detected (Not Detect) Parainfluenza 1 (PCR) Not detected (Not Detect) Parainfluenza 2 (PCR) Not detected (Not Detect) Parainfluenza 3 (PCR) Not detected (Not Detect) Parainfluenza 4 (PCR) Not detected (Not Detect) RSV (PCR) Not detected (Not Detect) Entero/Rhino (PCR) Not detected (Not Detect) MDM Narrative Medical decision making narrative: CC: Wheezing with the acute respiratory distress Complicating co-morbidities: April 04, ER visit April 13 as soon as he stopped steroids he continues to have symptoms. This is a new finding and and otherwise 49-year-old gentleman. He stopped smoking on April 04 Data collected from: patient Social determinants of health that may influence the patients condition: 1st appointment with his new primary care physician is May 09 Medical records reviewed: Prior hospitalization ER and urgent care notes are all reviewed Differential considered: Uncontrolled asthma, PE, cardiac wheeze, neoplastic process, other infectious process, viral syndrome Exam documented above, pertinent findings include: Significant wheezing, after initial nebulizer he has no longer tripoding he is able to speak in full sentences, accessory muscle use and wheeze in all lung torres with air movement in all lung torres Lab Test results independently reviewed as above. Pertinent findings: CBC is unremarkable Chemistries are reassuring Troponin is undetectable BNP is not elevated Full respiratory panel is unremarkable Imaging studies independently reviewed: CT scan of the chest shows no significant abnormalities Treatments: DuoNeb followed by 20 mg of albuterol, fluids, magnesium sulfate, methylprednisolone, oral Percocet for cough suppression and pain control Re-evaluations: Patient has been placed on oxygen initially and sats were in the high 80s on arrival. After treatment he is sounding significantly improved. Oxygen is turned off and with ambulatory trial around the emergency department he stayed in the mid 90s lowest was 92. At rest he would go up to 97. Discussion: 49-year-old gentleman with recurrent episodes of severe asthma exacerbation. Each time he stops prednisone his ended up back in the emergency department. He stopped smoking with his recent hospital admission. Today I chose to do a CT scan to see if we are missing some part of the puzzle piece to explain why this gentleman is having such severe asthma when he has never had issues such as this before. Does not appear to be any other extenuating circumstances, no infection, no PE this is not cardiogenic he has not having acute coronary syndrome. Responded appropriately to asthma treatment. We will again have him do a brief prednisone taper and this time stay at 5 mg until he is talked to his primary care physician. He has albuterol nebulized medication at home. Findings reviewed with the patient he is pleased with recommendations and we will be discharged Discharge Plan Departure Patient Disposition: Home Clinical Impression: Asthma with exacerbation Qualifiers: Asthma severity: severe Asthma persistence: persistent Qualified Code(s): J45.51 - Severe persistent asthma with (acute) exacerbation Instructions: DI for Asthma -- Adult Activity Restrictions/Additional Instructions: I am so sorry that you very appropriately came back to the emergency room today This is so frustrating that your symptoms are so dramatically worse as soon as you stop prednisone. I believe the most appropriate answer at this time is to not stop prednisone until we have better answers and hopefully better outpatient treatments for you. I did look more thoroughly today to make sure there was no evidence of cancers, odd viral or infectious concerns, heart attacks or heart failure. I did not find any other explanation for your asthma exacerbations I am going to send you home this time with recommendation for 20 mg of prednisone for a week, 10 mg for 2 weeks then continuing at 5 mg until you have seen your new primary care provider. You can use your albuterol nebulized solution up to every 4 hours as needed. Please do continue your montelukast amlodipine. Prescriptions were transmitted to [facility] Congratulations on getting to nonsmoking status, that is challenging and continuing in this way we will only help your lungs If you again, have worsening symptoms we are here for you Prescriptions: New prednisone 10 mg tablet 10 mg PO DIRECTED Qty: 60 0RF Rx Instructions: 20 mg daily for 7 days, 10 mg daily for 7 days, continue 5 mg a day oxycodone-acetaminophen 5-325 mg tablet 1 tab PO Q6H PRN (Reason: pain) Qty: 10 0RF No Action Qvar RediHaler 40 mcg/actuation HFA aerosol breath activated 1 inh inhalation Q12H Qty: 10.6 1RF amlodipine [Norvasc] 5 mg Tablet 5 mg PO DAILY Qty: 30 0RF nicotine 21 mg/24 hr Patch 24 Hour 21 mg topical DAILY Qty: 30 0RF montelukast 10 mg Tablet 10 mg PO DAILY Qty: 30 0RF doxycycline hyclate 100 mg Tablet 100 mg PO BID Qty: 8 0RF albuterol sulfate 90 mcg/actuation HFA aerosol inhaler 2 puff inhalation Q6H PRN (Reason: shortness of breath or wheezing) Qty: 8.5 0RF albuterol sulfate 5 mg/mL solution for nebulization 5 mg inhalation Q6H PRN (Reason: shortness of breath or wheezing) Qty: 75 3RF prednisone 10 mg tablet 10 mg PO DAILY Qty: 31 0RF Rx Instructions: 40 mg for 4 days, 20 mg for 4 days, 10 mg for 4 days, 5 mg for 6 days oxycodone-acetaminophen 5-325 mg tablet 1 tab PO Q6H PRN (Reason: pain) Qty: 14 0RF Referrals: Mohsen Nava MD [Primary Care Provider] - Stand Alone Forms: Patient Portal/API/Survey
--- NOTE | 2024-04-20 12:13 | PC.NURSE ---
Patient stated that he felt slightly better after first Duoneb but is still in distress. RT called. MD arrived in room to assess the patient. Will continue to monitor and provide care as ordered.
--- NOTE | 2024-04-20 12:15 | DI.CT.S_ITS ---
PROCEDURE: CT ANGIO CHEST PE PROTOCOL INDICATIONS: Persistent wheeze and dyspnea despite appropriate treatment TECHNIQUE: After the administration of intravenous contrast, 2 mm thick sections acquired from the pulmonary apices to the posterior costophrenic angles. 3-dimensional maximum intensity projection (MIP) coronal and sagittal reformats were then acquired through the thorax. For radiation dose reduction, the following was used: automated exposure control, adjustment of mA and/or kV according to patient size. COMPARISON: None. FINDINGS: Image quality: Diagnostic. Pulmonary arteries: Pulmonary arteries are normal in size, and demonstrate no intraluminal filling defects to suggest central pulmonary embolism. Lower Neck: No enlarged lymph nodes. Thyroid: No thyroid nodules which require sonographic follow up, per consensus guidelines. Axillae: No enlarged lymph nodes. Chest Wall: Unremarkable. Bones: Unremarkable. Lungs and Pleura: No pneumothorax or pleural effusions. Mild, peripheral ground-glass opacities in both lungs. Heart: Heart size is normal. No pericardial effusion. Thoracic Vessels: No aortic aneurysm. Mediastinum and Alexus: No enlarged lymph nodes. Esophagus: No wall thickening. No hiatal hernia. Upper Abdomen: Visualized upper abdomen solid organs and bowel loops appear normal. IMPRESSION: No pulmonary embolus. Mild peripheral ground-glass opacities, concerning for viral/atypical pneumonia. Dictated by: Dino Benavides M.D. on 04/20/2024 at 12:55 Approved by: Dino Benavides M.D. on 04/20/2024 at 12:58
[2024-04-20] MEDS: ALBUTEROL 2.5 MG/3 ML NEB (ADULT) 20 MG INH (12:22)
[2024-04-20 12:27] LABS: Add Manual Diff / Slide Review NO; Basophils Absolute Auto 100 /uL (0-100); Basophils Percent Auto 0.7 % (0-2); Eosinophils Absolute Auto 800 /uL (0-450); Eosinophils Percent Auto 5.9 % (2-4); Hematocrit 45.5 % (41-53); Hemoglobin 15.5 g/dL (13.5-17.5); Lymphocytes Absolute Auto 2600 /uL (1100-4500); Lymphocytes Percent Auto 19.6 % (25-40); Mean Corpuscular Hemoglobin 33.1 PG (26-34); Mean Corpuscular Volume 97.2 fL (80-100); Monocytes Absolute Auto 1500 /uL (0-900); Monocytes Percent Auto 10.9 % (3-14); Neutrophils Absolute Auto 8400 /uL (1500-7000); Neutrophils Percent Auto 62.9 % (50-75); Platelet Count 268 X10^3/uL (150-400); Red Blood Cell Count 4.68 X10^6/uL (4.5-5.9); Red Cell Distribution Width 12.9 % (11.6-14.8); White Blood Cell Count 13.4 X10^3/uL (4.5-11.0)
[2024-04-20] MEDS: MAGNESIUM SULFATE 2 GM/50 ML PIGGYBACK IV (12:27)
[2024-04-20 12:30] LABS: Lactate (Lactic Acid) 1.8 mmol/L (0.7-2.1)
[2024-04-20 12:31] LABS: Alanine Aminotransferase 29 IU/L (<50); Albumin 4.1 g/dL (3.5-5.0); Albumin Globulin Ratio 1.6 (1.0-2.8); Alkaline Phosphatase 87 U/L (38-126); Aspartate Aminotransferase 40 IU/L (17-59); BUN Creatinine Ratio 15.6 (6-22); Bilirubin Total 0.9 mg/dL (0.2-1.3); Blood Urea Nitrogen 12 mg/dL (9-20); Calcium 8.9 mg/dL (8.4-10.2); Carbon Dioxide 26 mmol/L (22-32); Chloride 103 mmol/L (98-107); Estimated Glomerular Filt Rate > 60 mL/min (>60); Globulin 2.5 g/dL (1.7-4.1); Glucose 124 mg/dL (70-100); HEMOLYSIS 39 (0-50); Potassium 4.2 mmol/L (3.4-5.1); Sodium 137 mmol/L (137-145); Total Protein 6.6 g/dL (6.3-8.2)
[2024-04-20] MEDS: methylPREDNISolone 125 MG/2 ML VIAL IV (12:32)
[2024-04-20] MEDS: SODIUM CHLORIDE 0.9% 1,000 ML 1000 ML IV (12:33)
[2024-04-20 12:42] LABS: NT-proBNP (BNP-Adult 18+) 31 pg/mL (<125); Troponin I < 0.012 ng/mL (0.01-0.034)
[2024-04-20] MEDS: OXYCODONE/ACETAMINOPHEN 5/325 TABLET 1 TAB PO (13:55)
--- NOTE | 2024-04-20 13:57 | PC.NURSE ---
patient states he feels better. his lung sounds are diminished in comparison to pre medication sounds. Slight inspiratory wheezes heard throughout. patient's o2 has decreased on RA to 91% from 94% RA at arrival.
[2024-04-20 14:27] LABS: Adenovirus Not Detected (Not Detect); B. parapertussis Not Detected (Not Detecte); Bordetella pertussis Not Detected (Not Detect); Chlamydophila pneumoniae Not Detected (Not Detect); Coronavirus 229E Not Detected (Not Detect); Coronavirus HKU1 Not Detected (Not Detect); Coronavirus NL 63 Not Detected (Not Detect); Coronavirus OC43 Not Detected (Not Detect); Human Metapneumovirus Not Detected (Not Detect); Human Rhinovirus/Enterovirus Not Detected (Not Detect); Influenza A Not Detected (Not Detect); Influenza B Not Detected (Not Detect); Mycoplasma pneumoniae Not Detected (Not Detect); Parainfluenza Virus 1 Not Detected (Not Detect); Parainfluenza Virus 2 Not Detected (Not Detect); Parainfluenza Virus 3 Not Detected (Not Detect); Parainfluenza Virus 4 Not Detected (Not Detect); Respiratory Syncytial Virus Not Detected (Not Detect); SARS- CoV-2 Not Detected (Not Detecte)
--- NOTE | 2024-04-20 15:45 | PC.NURSE ---
patient states feeling better and appears to not be in distress. His 02 is 92% on RA. He is no longer labored in breathe and is able to speak in full sentences.
== END 2024-04-20 16:08 | disposition home or self-care (01) ==
PROVIDERS: Emergency Provider Emergency Medicine; PCP Family Medicine
DX: J45.51 Severe persistent asthma with (acute) exacerbation (principal); R79.89 Other specified abnormal findings of blood chemistry; I10 Essential (primary) hypertension; Z11.52 Encounter for screening for COVID-19
CPT/HCPCS: 36415; 71275; 80053; 83605; 83880; 84484; 85025; 87633; 94640; 96365; 96375; 99284; J2919; J3475; J7613; Q9967

== ENCOUNTER 2024-04-26 06:08 | Emergency (ER) | payer OTHER, SELFPAY ==
[2024-04-04 21:50] VITALS: BMI 22.1
[2024-04-26] VITALS (9 sets, daily range): BP systolic 117–171; BP diastolic 76–103; PULSE 98–117; RESP 24–30; TEMP 36.6–36.9; O2SAT 94–98; BMI 23.1
[2024-04-26] MEDS: ALBUTEROL/IPRATROPIUM 3 ML AMPUL INH ×3 (06:17→06:23)
--- NOTE | 2024-04-26 06:23 | ED.GENADULT ---
HPI - General Adult <Madi Hauser DO - Last Filed: 04/26/24 17:54> General Chief complaint: Shortness of Breath/Dyspnea Stated complaint: SOB Time Seen by Provider: 04/26/24 06:11 Source: patient Mode of arrival: Ambulatory History of Present Illness HPI narrative: 49-year-old male with a history asthma who is here for evaluation of significant shortness of breath and coughing. He states that last night he was feeling pretty good although was having some wheezing. Took some of his albuterol. Was able to get some sleep but he woke up this morning he was unable to catch his breath. Tried multiple nebulizers and inhalers at home without any improvement. Coughing is getting worse. Arrived in the emergency department for further evaluation. Is having chest discomfort because of the coughing. He was on a steroid taper from the last time that he was seen here in the emergency department for his asthma. He did take an extra dose of the steroid yesterday. Related Data Previous Rx's Medication Instructions Recorded albuterol sulfate 90 mcg/actuation 2 puff inhalation Q6H PRN 04/07/24 aerosol inhaler shortness of breath or wheezing #8.5 grams amlodipine 5 mg tablet (Norvasc) 5 mg PO DAILY #30 tabs 04/07/24 doxycycline hyclate 100 mg tablet 100 mg PO BID #8 tabs 04/07/24 montelukast 10 mg tablet 10 mg PO DAILY #30 tabs 04/07/24 nicotine 21 mg/24 hr daily 21 mg topical DAILY #30 ea 04/07/24 transdermal patch albuterol sulfate 5 mg/mL(0.5 %) 5 mg inhalation Q6H PRN shortness 04/13/24 solution for nebulization of breath or wheezing #75 mL oxycodone-acetaminophen 5 mg-325 1 tab PO Q6H PRN pain #14 tabs 04/13/24 mg tablet prednisone 10 mg tablet 10 mg PO DAILY #31 tabs 04/13/24 beclomethasone dipropionate 40 1 inh inhalation Q12H #10.6 grams 04/14/24 mcg/actuation HFA breath activated aerosol (Qvar RediHaler) oxycodone-acetaminophen 5 mg-325 1 tab PO Q6H PRN pain #10 tabs 04/20/24 mg tablet prednisone 10 mg tablet 10 mg PO DIRECTED #60 tabs 04/20/24 fluticasone 500 mcg-salmeterol 50 1 inh inhalation BID #60 ea 04/26/24 mcg/dose blistr powdr for inhalation (Advair Diskus) prednisone 20 mg tablet 40 mg (2 x 20 mg) PO DAILY #60 tabs 04/26/24 Allergies Allergy/AdvReac Type Severity Reaction Status Date / Time No Known Drug Allergies Allergy Verified 04/14/24 18:21 Review of Systems <Madi Hauser DO - Last Filed: 04/26/24 17:54> Review of Systems ROS Unobtainable: All systems reviewed & are unremarkable except as noted in HPI and below Patient History <Madi Hauser DO - Last Filed: 04/26/24 17:54> Medical History Asthma Social History household members: family Smoking Status: Former smoker alcohol intake: current Smoking Status: Former smoker tobacco type: cigarettes alcohol intake frequency: a few times a month Alcohol type: beer Substance Use Type: does not use Exam <Madi Hauser DO - Last Filed: 04/26/24 17:54> Initial Vital Signs Initial Vital Signs: Vital Signs Temperature 98.5 F 04/26/24 06:12 Pulse Rate 112 H 04/26/24 06:12 Respiratory Rate 30 H 04/26/24 06:12 Blood Pressure 171/103 H 04/26/24 06:12 Pulse Oximetry 94 04/26/24 06:12 Oxygen Delivery Method Room Air 04/26/24 06:12 Const General: No ill appearing HENOR Head: normal to inspection and normocephalic Resp Effort & Inspection: cough, labored, respiratory distress and tachypneic Auscultation: diminished lung sounds and wheezes Cardio Rate: tachycardic Rhythm: regular rhythm Neuro General: patient alert and patient awake Extrem General: No edema <Meggan Barrett MD - Last Filed: 04/26/24 09:27> Initial Vital Signs Initial Vital Signs: Vital Signs Temperature 98.5 F 04/26/24 06:12 Pulse Rate 112 H 04/26/24 06:12 Respiratory Rate 30 H 04/26/24 06:12 Blood Pressure 171/103 H 04/26/24 06:12 Pulse Oximetry 94 04/26/24 06:12 Oxygen Delivery Method Room Air 04/26/24 06:12 Course <Madi Hauser DO - Last Filed: 04/26/24 17:54> Orders Ordered: Discontinued Medications Albuterol (Albuterol 2.5 Mg/3 Ml Neb (Adult)) 20 mg INH NOW ONE Stop: 04/26/24 06:40 Last Admin: 04/26/24 07:11 Dose: 20 mg Documented By: CARIE Albuterol/Ipratropium (Albuterol/Ipratropium 3 Ml Ampul) 3 ml INH NOW ONE Stop: 04/26/24 06:12 Last Admin: 04/26/24 06:17 Dose: 3 ml Documented By: SE Albuterol/Ipratropium (Albuterol/Ipratropium 3 Ml Ampul) 3 ml INH NOW ONE Stop: 04/26/24 06:24 Last Admin: 04/26/24 06:23 Dose: 3 ml Documented By: SE Albuterol/Ipratropium (Albuterol/Ipratropium 3 Ml Ampul) 3 ml INH NOW ONE Stop: 04/26/24 06:24 Last Admin: 04/26/24 06:23 Dose: 3 ml Documented By: SE Magnesium Sulfate (Magnesium Sulfate) 2 gm in 50 mls @ 25 mls/hr IV NOW ONE Stop: 04/26/24 08:38 Last Infusion: 04/26/24 07:05 Dose: Infused Documented By: OBED Co-signed By: RANDI Admin: 04/26/24 06:45 Dose: 25 mls/hr Documented By: TOOTIE Co-signed By: Ketorolac Tromethamine (Ketorolac 30 Mg/Ml Vial) 15 mg IV NOW ONE Stop: 04/26/24 06:47 Last Admin: 04/26/24 06:49 Dose: 15 mg Documented By: TOOTIE Methylprednisolone (Methylprednisolone 125 Mg/2 Ml Vial) 125 mg IV NOW ONE Stop: 04/26/24 06:40 Last Admin: 04/26/24 06:45 Dose: 125 mg Documented By: TOOTIE Vital Signs Vital signs: Vital Signs - 8 hr 04/26/24 06:12 04/26/24 06:17 04/26/24 06:23 Temperature 98.5 F Pulse Rate 112 H 117 H 111 H Respiratory Rate 30 H 24 24 Blood Pressure 171/103 H Pulse Oximetry 94 95 94 Oxygen Delivery Method Room Air Nasal Cannula Nasal Cannula Oxygen Flow Rate 2 2 Fraction of Inspired Oxygen 28 28 04/26/24 07:02 04/26/24 07:16 04/26/24 07:30 Temperature Pulse Rate 111 H 109 H Respiratory Rate Blood Pressure Pulse Oximetry 96 98 96 Oxygen Delivery Method Nasal Cannula Oxygen Flow Rate 2 Fraction of Inspired Oxygen 04/26/24 07:30 04/26/24 08:00 04/26/24 08:00 Temperature Pulse Rate 98 H Respiratory Rate Blood Pressure 117/76 141/84 H Pulse Oximetry 95 Oxygen Delivery Method Oxygen Flow Rate Fraction of Inspired Oxygen 04/26/24 08:30 04/26/24 08:30 04/26/24 09:00 Temperature 97.9 F Pulse Rate 105 H 106 H Respiratory Rate Blood Pressure 130/85 Pulse Oximetry 96 95 Oxygen Delivery Method Room Air Oxygen Flow Rate Fraction of Inspired Oxygen 04/26/24 09:00 Temperature Pulse Rate Respiratory Rate Blood Pressure 146/90 H Pulse Oximetry Oxygen Delivery Method Oxygen Flow Rate Fraction of Inspired Oxygen <Meggan Barrett MD - Last Filed: 04/26/24 09:27> Orders Ordered: Discontinued Medications Albuterol (Albuterol 2.5 Mg/3 Ml Neb (Adult)) 20 mg INH NOW ONE Stop: 04/26/24 06:40 Last Admin: 04/26/24 07:11 Dose: 20 mg Documented By: CARIE Albuterol/Ipratropium (Albuterol/Ipratropium 3 Ml Ampul) 3 ml INH NOW ONE Stop: 04/26/24 06:12 Last Admin: 04/26/24 06:17 Dose: 3 ml Documented By: SE Albuterol/Ipratropium (Albuterol/Ipratropium 3 Ml Ampul) 3 ml INH NOW ONE Stop: 04/26/24 06:24 Last Admin: 04/26/24 06:23 Dose: 3 ml Documented By: SE Albuterol/Ipratropium (Albuterol/Ipratropium 3 Ml Ampul) 3 ml INH NOW ONE Stop: 04/26/24 06:24 Last Admin: 04/26/24 06:23 Dose: 3 ml Documented By: SE Magnesium Sulfate (Magnesium Sulfate) 2 gm in 50 mls @ 25 mls/hr IV NOW ONE Stop: 04/26/24 08:38 Last Infusion: 04/26/24 07:05 Dose: Infused Documented By: OBED Co-signed By: RANDI Admin: 04/26/24 06:45 Dose: 25 mls/hr Documented By: TOOTIE Co-signed By: Ketorolac Tromethamine (Ketorolac 30 Mg/Ml Vial) 15 mg IV NOW ONE Stop: 04/26/24 06:47 Last Admin: 04/26/24 06:49 Dose: 15 mg Documented By: TOOTIE Methylprednisolone (Methylprednisolone 125 Mg/2 Ml Vial) 125 mg IV NOW ONE Stop: 04/26/24 06:40 Last Admin: 04/26/24 06:45 Dose: 125 mg Documented By: TOOTIE Vital Signs Vital signs: Vital Signs - 8 hr 04/26/24 06:12 04/26/24 06:17 04/26/24 06:23 Temperature 98.5 F Pulse Rate 112 H 117 H 111 H Respiratory Rate 30 H 24 24 Blood Pressure 171/103 H Pulse Oximetry 94 95 94 Oxygen Delivery Method Room Air Nasal Cannula Nasal Cannula Oxygen Flow Rate 2 2 Fraction of Inspired Oxygen 28 28 04/26/24 07:02 04/26/24 07:16 04/26/24 07:30 Temperature Pulse Rate 111 H 109 H Respiratory Rate Blood Pressure Pulse Oximetry 96 98 96 Oxygen Delivery Method Nasal Cannula Oxygen Flow Rate 2 Fraction of Inspired Oxygen 04/26/24 07:30 04/26/24 08:00 04/26/24 08:00 Temperature Pulse Rate 98 H Respiratory Rate Blood Pressure 117/76 141/84 H Pulse Oximetry 95 Oxygen Delivery Method Oxygen Flow Rate Fraction of Inspired Oxygen 04/26/24 08:30 04/26/24 08:30 04/26/24 09:00 Temperature 97.9 F Pulse Rate 105 H 106 H Respiratory Rate Blood Pressure 130/85 Pulse Oximetry 96 95 Oxygen Delivery Method Room Air Oxygen Flow Rate Fraction of Inspired Oxygen 04/26/24 09:00 Temperature Pulse Rate Respiratory Rate Blood Pressure 146/90 H Pulse Oximetry Oxygen Delivery Method Oxygen Flow Rate Fraction of Inspired Oxygen Medical Decision Making <Madi Hauser DO - Last Filed: 04/26/24 17:54> Medical Records Medical records reviewed: Yes I reviewed the patient's medical records. Lab Data 04/26/24 06:15 04/26/24 06:15 Labs: Lab Results 04/26/24 Range/Units 06:15 WBC 15.1 H (4.5-11.0) X10^3/uL RBC 4.94 (4.5-5.9) X10^6/uL Hgb 16.2 (13.5-17.5) g/dL Hct 48.7 (41-53) % MCV 98.6 (80-100) fL MCH 32.8 (26-34) PG MCHC 33.3 (30-36) % RDW 13.1 (11.6-14.8) % Plt Count 275 (150-400) X10^3/uL Neut % (Auto) 65.2 (50-75) % Lymph % (Auto) 20.8 L (25-40) % [place] % (Auto) 7.2 (3-14) % Eos % (Auto) 5.8 H (2-4) % Baso % (Auto) 1.0 (0-2) % Neut # (Auto) 9800 H (0738-7026) /uL Lymph # (Auto) 3100 (0394-7560) /uL [place] # (Auto) 1100 H (0-900) /uL Eos # (Auto) 900 H (0-450) /uL Baso # (Auto) 200 H (0-100) /uL Sodium 140 (137-145) mmol/L Potassium 4.4 (3.4-5.1) mmol/L Chloride 105 (98-107) mmol/L Carbon Dioxide 27 (22-32) mmol/L BUN 17 (9-20) mg/dL Creatinine 0.85 (0.66-1.25) mg/dL Estimated GFR > 60 (>60) mL/min BUN/Creatinine Ratio 20.0 (6-22) Glucose 114 H (70-100) mg/dL Calcium 9.0 (8.4-10.2) mg/dL ECG Data Attestation: I personally reviewed and interpreted this ECG as follows: Interpretation: Sinus tachycardia Ventricular rate 110 Normal axis Normal QRS No ST T wave changes. MDM Narrative Medical decision making narrative: Patient reports some improvement after DuoNebs here in the ER however still remains diffusely wheezing and coughing. Not hypoxic. Is tachycardic most likely from the albuterol. Will provide a continuous nebulizer and steroids and magnesium as this seemed to work for him in the past. Care turned over to day provider to follow-up after treatment and disposition. <Meggan Barrett MD - Last Filed: 04/26/24 09:27> Lab Data Labs: Lab Results 04/26/24 Range/Units 06:15 WBC 15.1 H (4.5-11.0) X10^3/uL RBC 4.94 (4.5-5.9) X10^6/uL Hgb 16.2 (13.5-17.5) g/dL Hct 48.7 (41-53) % MCV 98.6 (80-100) fL MCH 32.8 (26-34) PG MCHC 33.3 (30-36) % RDW 13.1 (11.6-14.8) % Plt Count 275 (150-400) X10^3/uL Neut % (Auto) 65.2 (50-75) % Lymph % (Auto) 20.8 L (25-40) % [place] % (Auto) 7.2 (3-14) % Eos % (Auto) 5.8 H (2-4) % Baso % (Auto) 1.0 (0-2) % Neut # (Auto) 9800 H (7349-4311) /uL Lymph # (Auto) 3100 (4329-3083) /uL [place] # (Auto) 1100 H (0-900) /uL Eos # (Auto) 900 H (0-450) /uL Baso # (Auto) 200 H (0-100) /uL Sodium 140 (137-145) mmol/L Potassium 4.4 (3.4-5.1) mmol/L Chloride 105 (98-107) mmol/L Carbon Dioxide 27 (22-32) mmol/L BUN 17 (9-20) mg/dL Creatinine 0.85 (0.66-1.25) mg/dL Estimated GFR > 60 (>60) mL/min BUN/Creatinine Ratio 20.0 (6-22) Glucose 114 H (70-100) mg/dL Calcium 9.0 (8.4-10.2) mg/dL MDM Narrative Medical decision making narrative: Patient reports some improvement after DuoNebs here in the ER however still remains diffusely wheezing and coughing. Not hypoxic. Is tachycardic most likely from the albuterol. Will provide a continuous nebulizer and steroids and magnesium as this seemed to work for him in the past. Care turned over to day provider to follow-up after treatment and disposition. 7am Dr Barrett Care is assumed, patient is independently evaluated, chart is reviewed Currently finishing up his 20 mg of albuterol. He has gotten Solu-Medrol and Toradol parenterally He is moving air much better, oxygen saturations are improved, now able to appreciate wheezes in all lung torres with no rales or rhonchi Labs including CBC and chemistry panel are reviewed. Unchanged from prior EKG shows sinus tach at 1:10 a.m. with biatrial enlargement, no acute ischemia Consult: Dr. Clifton Lobato, mass spectrometry manager. Recommended Advair or Symbicort, Symbicort was declined by his insurance already. Beclomethasone was ordered to replace this but apparently there is a back order so he is currently on no inhaled steroids. With most recent visit he had been placed on a steroid taper was to be taken 40 mg for a week, 20 mg for a week 10 mg for a week and remain on 5 mg. He is still at the 40 mg strength. Recommendation was to simply continue 40 mg until seen by Pulmonary. He is not smoking, I am concerned that there is something in the trailer and which he moved into shortly prior to all of his symptoms starting that is sitting off his asthma. Reviewed this with him. Unfortunately he has minimal options for places to live or ability to pay for medications at this time. He did just recently start a new job. The pulmonary office will contact patient, they have been given name number and address to follow up. Prescription for prednisone to continue at 40 mg is given, prescription for Advair 500/50 b.i.d. is given. Patient understands the importance of trying to make some environmental changes. Stated he was going to try to clean up his living space and he was provided and 95 masks to make sure that that does not causing exacerbate option for him. He is improved significantly with the Solu-Medrol in the extended nebulizer treatment. He is safe for discharge and will need follow up with mass spectrometry manager Discharge Plan Departure Patient Disposition: Home Clinical Impression: Asthma with exacerbation Qualifiers: Asthma severity: severe Asthma persistence: persistent Qualified Code(s): J45.51 - Severe persistent asthma with (acute) exacerbation Instructions: DI for Asthma -- Adult Activity Restrictions/Additional Instructions: I am sorry that this asthma flare has been so severe We have looked at all secondary sources that might be causing problems such as heart issues, infection, blood clots in your lungs and have not found any abnormalities I spoke with Dr. Lobato this morning. He is 1 of the pulmonary doctors here at [facility]. His recommendation was to continue 40 mg of prednisone daily until you are able to see him. He also recommended trying again to see if we can get you on an inhaled steroid. I have sent prescriptions for an Advair Diskus as well as prednisone to [facility] for you to orange picker today I have given his office your contact information, please expect a call for follow up visit In the meantime, anything that you are able to do to try to spend at least a few nights outside of your current living situation. I strongly suspect that there is something in that environment that is triggering your asthma If you find that you are getting worse or develop any new symptoms, please feel free to return to the emergency department for further evaluation. Prescriptions: New prednisone 20 mg tablet 40 mg PO DAILY Qty: 60 0RF fluticasone propion-salmeterol [Advair Diskus] 500-50 mcg/dose blister with device 1 inh inhalation BID Qty: 60 0RF No Action Qvar RediHaler 40 mcg/actuation HFA aerosol breath activated 1 inh inhalation Q12H Qty: 10.6 1RF amlodipine [Norvasc] 5 mg Tablet 5 mg PO DAILY Qty: 30 0RF nicotine 21 mg/24 hr Patch 24 Hour 21 mg topical DAILY Qty: 30 0RF montelukast 10 mg Tablet 10 mg PO DAILY Qty: 30 0RF doxycycline hyclate 100 mg Tablet 100 mg PO BID Qty: 8 0RF albuterol sulfate 90 mcg/actuation HFA aerosol inhaler 2 puff inhalation Q6H PRN (Reason: shortness of breath or wheezing) Qty: 8.5 0RF albuterol sulfate 5 mg/mL solution for nebulization 5 mg inhalation Q6H PRN (Reason: shortness of breath or wheezing) Qty: 75 3RF prednisone 10 mg tablet 10 mg PO DAILY Qty: 31 0RF Rx Instructions: 40 mg for 4 days, 20 mg for 4 days, 10 mg for 4 days, 5 mg for 6 days oxycodone-acetaminophen 5-325 mg tablet 1 tab PO Q6H PRN (Reason: pain) Qty: 14 0RF prednisone 10 mg tablet 10 mg PO DIRECTED Qty: 60 0RF Rx Instructions: 20 mg daily for 7 days, 10 mg daily for 7 days, continue 5 mg a day oxycodone-acetaminophen 5-325 mg tablet 1 tab PO Q6H PRN (Reason: pain) Qty: 10 0RF Referrals: Mohsen Nava MD [Primary Care Provider] - Stand Alone Forms: Patient Portal/API/Survey
--- NOTE | 2024-04-26 06:26 | EKG_ITS ---
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
[2024-04-26] MEDS: methylPREDNISolone 125 MG/2 ML VIAL IV (06:45)
[2024-04-26] MEDS: MAGNESIUM SULFATE 2 GM/50 ML PIGGYBACK IV (06:45)
[2024-04-26] MEDS: KETOROLAC 30 MG/ML VIAL 15 MG IV (06:49)
[2024-04-26] MEDS: ALBUTEROL 2.5 MG/3 ML NEB (ADULT) 20 MG INH (07:11)
[2024-04-26 07:25] LABS: Add Manual Diff / Slide Review NO; Basophils Absolute Auto 200 /uL (0-100); Eosinophils Absolute Auto 900 /uL (0-450); Eosinophils Percent Auto 5.8 % (2-4); Hematocrit 48.7 % (41-53); Hemoglobin 16.2 g/dL (13.5-17.5); Lymphocytes Absolute Auto 3100 /uL (1100-4500); Lymphocytes Percent Auto 20.8 % (25-40); Mean Corpuscular HGB Conc 33.3 % (30-36); Mean Corpuscular Hemoglobin 32.8 PG (26-34); Mean Corpuscular Volume 98.6 fL (80-100); Monocytes Absolute Auto 1100 /uL (0-900); Monocytes Percent Auto 7.2 % (3-14); Neutrophils Absolute Auto 9800 /uL (1500-7000); Neutrophils Percent Auto 65.2 % (50-75); Platelet Count 275 X10^3/uL (150-400); Red Blood Cell Count 4.94 X10^6/uL (4.5-5.9); Red Cell Distribution Width 13.1 % (11.6-14.8); White Blood Cell Count 15.1 X10^3/uL (4.5-11.0)
[2024-04-26 07:28] LABS: Blood Urea Nitrogen 17 mg/dL (9-20); Carbon Dioxide 27 mmol/L (22-32); Chloride 105 mmol/L (98-107); Estimated Glomerular Filt Rate > 60 mL/min (>60); Glucose 114 mg/dL (70-100); HEMOLYSIS < 15 (0-50); Potassium 4.4 mmol/L (3.4-5.1); Sodium 140 mmol/L (137-145)
--- NOTE | 2024-04-26 09:04 | PC.NURSE ---
Magnesium drip was not hanging when this RN came onto shift. Mag stopped in MAR
== END 2024-04-26 09:24 | disposition home or self-care (01) ==
PROVIDERS: Emergency Medicine; Emergency Provider Emergency Medicine; PCP Family Medicine
DX: J45.51 Severe persistent asthma with (acute) exacerbation (principal); R07.9 Chest pain, unspecified; R00.0 Tachycardia, unspecified
CPT/HCPCS: 36415; 80048; 85025; 93005; 93010; 94640; 96365; 96375; 99284; J1885; J2919; J3475; J7613